=== PATIENT | male | born 1970 | race Caucasian/White ===

== ENCOUNTER 2023-01-20 08:37 | Inpatient (IN) ==
--- NOTE | 2023-01-20 08:57 | DR.EXTPAIN ---
HPI Time seen Time Seen by Provider: 01/20/23 08:57 ROS Review of Systems Constitutional: No Symptoms Reported Eyes: No Symptoms Reported ENTM: No Symptoms Reported Respiratoy: No Symptoms Reported Cardiovascular: No Symptoms Reported Gastrointestinal/Abdominal: No Symptoms Reported Genitourinary: No Symptoms Reported Neurological: No Symptoms Reported Musculoskeletal: No Symptoms Reported Integumentary: No Symptoms Reported Hematologic/Lymphatic: No Symptoms Reported Endocrine: No Symptoms Reported Psychiatric: No Symptoms Reported All Other Systems: Reviewed and Negative PE Vital Signs Vitals: Temperature 99.1 F Pulse Rate 81 Respiratory Rate 18 Blood Pressure 111/70 O2 Sat by Pulse Oximetry 97 Back Back Exam: Normal Inspection Neurological Neurological Exam: Alert Psychiatric Psychiatric Exam: Normal Affect Skin Skin Exam: Warm MDM Differential Diagnosis Differential Diagnosis: Abrasion ROR Labs Reviewed Result Diagrams: 01/20/23 09:32 01/20/23 09:32 Laboratory: WBC 10.2 X10^3/uL (3.6-10.0) H 01/20/23 09:32 RBC 4.62 X10^6/uL (4.7-6.0) L 01/20/23 09:32 Hgb 12.6 g/dL (13.5-18.0) L 01/20/23 09:32 Hct 37.1 % (42.0-54.0) L 01/20/23 09:32 MCV 80.3 fL (80.0-100.0) 01/20/23 09:32 MCH 27.4 pg (27.0-34.0) 01/20/23 09:32 MCHC 34.1 g/dL (33.0-35.0) 01/20/23 09:32 RDW 14.5 % (11.6-16.5) 01/20/23 09:32 Plt Count 250 X10^3/uL (150.0-450.0) 01/20/23 09:32 MPV 7.2 fL (7.4-11.0) L 01/20/23 09:32 Neut % (Auto) 84.9 % (42.0-75.0) H 01/20/23 09:32 Lymph % (Auto) 7.0 % (21.0-51.0) L 01/20/23 09:32 [place] % (Auto) 5.7 % (0.0-13.0) 01/20/23 09:32 Eos % (Auto) 1.8 % (0.9-2.9) 01/20/23 09:32 Baso % (Auto) 0.6 % (0.2-1.0) 01/20/23 09:32 Neut # (Auto) 8.7 x10^3/uL (2.2-4.8) H 01/20/23 09:32 Lymph # (Auto) 0.7 X10^3/uL (1.3-2.9) L 01/20/23 09:32 [place] # (Auto) 0.6 x10^3/uL (0.3-0.8) 01/20/23 09:32 Eos # (Auto) 0.2 x10^3/uL (0.0-0.2) 01/20/23 09:32 Baso # (Auto) 0.1 X10^3/uL (0.0-0.1) 01/20/23 09:32 Absolute Nucleated RBC 0.1 /100WBC 01/20/23 09:32 Sodium 137 mmol/L (136-145) 01/20/23 09:32 Corrected Sodium 140 mmol/L (136-145) 01/20/23 09:32 Potassium 4.2 mmol/L (3.5-5.1) 01/20/23 09:32 Chloride 102 mmol/L (98-107) 01/20/23 09:32 Carbon Dioxide 27.4 mmol/L (21-32) 01/20/23 09:32 BUN 30 mg/dL (7-18) H 01/20/23 09:32 Creatinine 1.45 mg/dL (0.70-1.30) H 01/20/23 09:32 Est GFR (MDRD) Af Amer > 60 (>60) 01/20/23 09:32 Est GFR (MDRD) Non-Af 55 (>60) L 01/20/23 09:32 Glucose 229 mg/dL (65-99) H 01/20/23 09:32 Calcium 8.4 mg/dL (8.5-10.1) L 01/20/23 09:32 Corrected Calcium 10.2 mg/dL (8.5-10.1) H 01/20/23 09:32 Total Bilirubin 0.80 mg/dL (0.2-1.0) 01/20/23 09:32 AST 19 Units/L (15-37) 01/20/23 09:32 ALT 19 Units/L (12-78) 01/20/23 09:32 Alkaline Phosphatase 316 Units/L (46-116) H 01/20/23 09:32 Total Protein 5.9 g/dL (6.4-8.2) L 01/20/23 09:32 Albumin 1.8 g/dL (3.4-5.0) L 01/20/23 09:32 Globulin 4.1 g/dL (2.5-4.5) 01/20/23 09:32 Albumin/Globulin Ratio 0.4 Ratio (1.1-2.1) L 01/20/23 09:32 Opioid Opioid Risk Tool Total: 0 Total Score Risk Category: Low Risk Copyright: Triston CHIN predicting aberrant behaviors Discharge Plan Diagnosis Discharge Problem: Abscess of muscle of upper arm, Hematoma of muscle Discharge Plan Patient Disposition: 01 HOME, SELF-CARE Condition: Stable Orders to Discharge Patient Discharge Orders: Transfer (Routine); Ordered 01/20/23 Ordered By: NICKY PERKINS
[2023-01-20] MEDS ORDERED: TORADOL 30 MG VIAL IVP ONE (09:38)
[2023-01-20] MEDS ORDERED: TORADOL 30 MG VIAL ONE (09:38)
[2023-01-20 09:42] LABS: BASOPHILS # (AUTO) 0.1 X10^3/uL (0.0-0.1); BASOPHILS % (AUTO) 0.6 % (0.2-1.0); EOSINOPHILS # (AUTO) 0.2 x10^3/uL (0.0-0.2); EOSINOPHILS % (AUTO) 1.8 % (0.9-2.9); HEMATOCRIT 37.1 % (42.0-54.0); HEMOGLOBIN 12.6 g/dL (13.5-18.0); LYMPHOCYTES # (AUTO) 0.7 X10^3/uL (1.3-2.9); MEAN CORPUSCULAR HEMOGLOBIN 27.4 pg (27.0-34.0); MEAN CORPUSCULAR HGB CONC 34.1 g/dL (33.0-35.0); MEAN CORPUSCULAR VOLUME 80.3 fL (80.0-100.0); MEAN PLATELET VOLUME 7.2 fL (7.4-11.0); MONOCYTES # (AUTO) 0.6 x10^3/uL (0.3-0.8); MONOCYTES % (AUTO) 5.7 % (0.0-13.0); NEUTROPHILS # (AUTO) 8.7 x10^3/uL (2.2-4.8); NEUTROPHILS % (AUTO) 84.9 % (42.0-75.0); RED BLOOD COUNT 4.62 X10^6/uL (4.7-6.0); RED CELL DISTRIBUTION WIDTH 14.5 % (11.6-16.5); WHITE BLOOD COUNT 10.2 X10^3/uL (3.6-10.0)
[2023-01-20 09:55] LABS: ALANINE AMINOTRANSFERASE 19 Units/L (12-78); ALBUMIN 1.8 g/dL (3.4-5.0); ALKALINE PHOSPHATASE 316 Units/L (46-116); ASPARTATE AMINO TRANSFERASE 19 Units/L (15-37); BLOOD UREA NITROGEN 30 mg/dL (7-18); CALCIUM 8.4 mg/dL (8.5-10.1); CARBON DIOXIDE 27.4 mmol/L (21-32); CHLORIDE 102 mmol/L (98-107); COR CA(FOR HYPOALB) 10.2 mg/dL (8.5-10.1); COR NA(FOR HYPERGLY) 140 mmol/L (136-145); CREATININE 1.45 mg/dL (0.70-1.30); SODIUM 137 mmol/L (136-145); TOTAL PROTEIN 5.9 g/dL (6.4-8.2); eGFR NON BLACK RACES 55 (>60)
--- NOTE | 2023-01-20 11:21 | CT ---
Exam:UPPER EXT WITH CONIndication: Patient C/O of painful/swelling knot or abcess to left tricep area x 5-6 weeks. Denies trauma.Comparison: [None available]Technique: Axial images of the [left arm] were obtained with coronal and sagittal reformatted images performed. Intravenous contrast administration [ was ] performed.Dose reduction techniques including Automated Exposure Control (AEC) and adjustment of mA and kV were utilized.Findings: [There is low attenuation within the proximal left triceps muscle with surrounding inflammatory change raising concern for underlying infection and/or fluid collection. There is no definite peripheral enhancement within the area of decreased attenuation/fluid within the posterior left arm.No fracture of the left shoulder.Mild left AC and glenohumeral joint DJD.There is no definite lymphadenopathy within the left axilla.IMPRESSIONLimited evaluation of the left arm demonstrates heterogeneous decreased attenuation within the left triceps muscle with surrounding inflammatory change within the subcutaneous tissues of the proximal/mid left arm. Findings are suspicious for hematoma, abscess and/or myositis of the triceps muscle. Contrast enhanced left arm MRI examination is recommended for improved characterization this location if no contraindication to MRI. If contraindication further evaluation with targeted sonogram can be performedNo left axillary lymphadenopathy.Mild DJD of the left AC and glenohumeral joints.Electronically signed by: MALGORZATA LEMON (Jan 20, 2023 11:19:43)
[2023-01-20] MEDS ORDERED: ZOSYN VIAL 3.375 GRAMS 3.375 G in NS 100 ML IV 100 ML IV ONE (12:48)
[2023-01-20] MEDS ORDERED: ZOSYN VIAL 3.375 GRAMS IV ONE (12:49)
[2023-01-20] MEDS ORDERED: NS 1,000 ML IV 1,000 ML ONE (12:49)
[2023-01-20] MEDS ORDERED: NS 100 ML IV 100 ML ONE (12:50)
[2023-01-20] MEDS: NS 1,000 ML IV 1,000 ML IV SCH ×2 (12:59→20:28)
[2023-01-20] MEDS ORDERED: MOTRIN TAB 600 MG PO PRN (14:39)
[2023-01-20] MEDS: ZOSYN VIAL 3.375 GRAMS 3.375 G in NS 100 ML IV 100 ML IV SCH ×2 (15:42→21:03)
[2023-01-20] MEDS: NovoLIN R (or HumuLIN R) SUBCUT PRN ×2 (16:34→20:34)
[2023-01-20] MEDS: MORPHINE SULFATE INJ 2 MG INJ IVP PRN (17:13)
--- NOTE | 2023-01-20 20:12 | DR.H&P ---
H&P History & Physical for Day of: H&P Date: 01/20/23 Chief Complaint Chief Complaint: Mass effect to left posterior arm over triceps. Allergies Allergies Allergy/AdvReac Type Severity Reaction Status Date / Time sulfamethoxazole Allergy Verified 01/20/23 09:06 [From Bactrim] trimethoprim [From Bactrim] Allergy Verified 01/20/23 09:06 watermelon Allergy Verified 01/20/23 14:49 History of Present Illness History of Present Illness: As above . 52 yo male with mass to posterior left upper arm x 6 weeks. Seen in ER in [place] at that time and had negative venous doppler for CVT . No definitive treatment or f/u performed at that time . History of NC in 2019 and had coronary stent and has been on Brillinta and aspirin since then. Hx of congestive heart failure and has a pacemaker defibrillator in place. Past Medical History Past Medical History: CHF (has pacemaker and defibrillator in place), Coronary Artery Disease, Diabetes and Dyslipidemia Past Surgical History Surgical History: Angioplasty/Stents, Ortho Surgery and Other (Pacemaker/ defibr illator) Family History Family Medical History: Diabetes Mellitus and Cancer Social History Does patient currently use any type of tobacco product: No Have you used tobacco products in the last 12 months: No Type of Tobacco Use: None Does any household member use tobacco: No Alcohol Use: None Drug Use: None Medications Home Medications: sulfamethoxazole [From Bactrim] Allergy (Verified 01/20/23 09:06) trimethoprim [From Bactrim] Allergy (Verified 01/20/23 09:06) watermelon Allergy (Verified 01/20/23 14:49) CONTINUE taking the following medications aspirin 81 mg tablet 81 mg PO QDAY 01/20/23 [History] atorvastatin 40 mg tablet 40 mg PO QDAY 01/20/23 [History] carvedilol 3.125 mg tablet 1 tab PO BID 01/20/23 [History] empagliflozin 10 mg tablet (Jardiance) 1 tab PO QDAY 01/20/23 [History] furosemide 40 mg tablet 1 tab PO QDAY 01/20/23 [History] sacubitril 24 mg-valsartan 26 mg tablet (Entresto) 1 tab PO BID 01/20/23 [History] spironolactone 25 mg tablet 1 tab PO QDAY 01/20/23 [History] ticagrelor 60 mg tablet (Brilinta) 1 tab PO BID 01/20/23 [History] Labs Result Diagrams: 01/20/23 09:32 01/20/23 09:32 Labs: Laboratory WBC 10.2 X10^3/uL (3.6-10.0) H 01/20/23 09:32 RBC 4.62 X10^6/uL (4.7-6.0) L 01/20/23 09:32 Hgb 12.6 g/dL (13.5-18.0) L 01/20/23 09:32 Hct 37.1 % (42.0-54.0) L 01/20/23 09:32 MCV 80.3 fL (80.0-100.0) 01/20/23 09:32 MCH 27.4 pg (27.0-34.0) 01/20/23 09:32 MCHC 34.1 g/dL (33.0-35.0) 01/20/23 09:32 RDW 14.5 % (11.6-16.5) 01/20/23 09:32 Plt Count 250 X10^3/uL (150.0-450.0) 01/20/23 09:32 MPV 7.2 fL (7.4-11.0) L 01/20/23 09:32 Neut % (Auto) 84.9 % (42.0-75.0) H 01/20/23 09:32 Lymph % (Auto) 7.0 % (21.0-51.0) L 01/20/23 09:32 [place] % (Auto) 5.7 % (0.0-13.0) 01/20/23 09:32 Eos % (Auto) 1.8 % (0.9-2.9) 01/20/23 09:32 Baso % (Auto) 0.6 % (0.2-1.0) 01/20/23 09:32 Neut # (Auto) 8.7 x10^3/uL (2.2-4.8) H 01/20/23 09:32 Lymph # (Auto) 0.7 X10^3/uL (1.3-2.9) L 01/20/23 09:32 [place] # (Auto) 0.6 x10^3/uL (0.3-0.8) 01/20/23 09:32 Eos # (Auto) 0.2 x10^3/uL (0.0-0.2) 01/20/23 09:32 Baso # (Auto) 0.1 X10^3/uL (0.0-0.1) 01/20/23 09:32 Absolute Nucleated RBC 0.1 /100WBC 01/20/23 09:32 Sodium 137 mmol/L (136-145) 01/20/23 09:32 Corrected Sodium 140 mmol/L (136-145) 01/20/23 09:32 Potassium 4.2 mmol/L (3.5-5.1) 01/20/23 09:32 Chloride 102 mmol/L (98-107) 01/20/23 09:32 Carbon Dioxide 27.4 mmol/L (21-32) 01/20/23 09:32 BUN 30 mg/dL (7-18) H 01/20/23 09:32 Creatinine 1.45 mg/dL (0.70-1.30) H 01/20/23 09:32 Est GFR (MDRD) Af Amer > 60 (>60) 01/20/23 09:32 Est GFR (MDRD) Non-Af 55 (>60) L 01/20/23 09:32 Glucose 229 mg/dL (65-99) H 01/20/23 09:32 POC Glucose (mg/dL) 278 mg/dL (65-99) H 01/20/23 16:14 Calcium 8.4 mg/dL (8.5-10.1) L 01/20/23 09:32 Corrected Calcium 10.2 mg/dL (8.5-10.1) H 01/20/23 09:32 Total Bilirubin 0.80 mg/dL (0.2-1.0) 01/20/23 09:32 AST 19 Units/L (15-37) 01/20/23 09:32 ALT 19 Units/L (12-78) 01/20/23 09:32 Alkaline Phosphatase 316 Units/L (46-116) H 01/20/23 09:32 Total Protein 5.9 g/dL (6.4-8.2) L 01/20/23 09:32 Albumin 1.8 g/dL (3.4-5.0) L 01/20/23 09:32 Globulin 4.1 g/dL (2.5-4.5) 01/20/23 09:32 Albumin/Globulin Ratio 0.4 Ratio (1.1-2.1) L 01/20/23 09:32 Review of Systems Constitutional: See HPI Eyes: No Symptoms Reported ENT: No Symptoms Reported Respiratory: No Symptoms Reported Cardiovascular: No Symptoms Reported Gastrointestinal: No Symptoms Reported Genitourinary: No Symptoms Reported Musculoskeletal: No Symptoms Reported Skin: No Symptoms Reported Neurological: No Symptoms Reported Physical Exam Vital Signs: Temperature 98.4 F Pulse Rate [Left] 86 Pulse Rate 81 Respiratory Rate 18 Blood Pressure [Left Arm] 116/68 Blood Pressure 111/70 O2 Sat by Pulse Oximetry 99 Oriented: Normal, Time, Person and Place Eyes: Normal Ear: Normal Nose: Normal Throat: Normal Respiratory: Clear Throughout Cardiovascular: Other (RRR,) : Normal Auscultation: Bowel Sounds: Normal Palpation: Normal Tenderness: Normal Skin: Other (10x8 x 4 cm firm mass to the left posterior arm , no obviou redness) Musculoskeletal: Normal Mood Description: Calm Affect: Normal Speech Pattern: Clear Assessment/Plan (1) Hematoma of muscle: Status: Acute Plan: Will plan drainage of this hematoma to the left posterior upper arm (2) Abscess of muscle of upper arm: Status: Acute Plan: as above (3) Coronary artery disease: Status: Acute Plan: current treatment (4) Congestive heart failure: Status: Acute Plan: continue current treatment (5) Diabetes: Status: Acute Plan: Current home treatment Review H&P Reviewed: Yes Patient was examined?: Yes
[2023-01-20] MEDS: ENTRESTO 24/26 MG TABLET PO SCH (20:27)
[2023-01-20] MEDS: SNACK - Diabetic Appropriate PO SCH (20:27)
[2023-01-20] MEDS: COREG TAB 3.125 MG PO SCH (20:27)
[2023-01-20] MEDS: BRILINTA PO SCH (20:28)
[2023-01-21] MEDS: ZOFRAN TAB 4 MG PO PRN ×2 (02:56→15:56)
[2023-01-21] MEDS: MORPHINE SULFATE INJ 2 MG INJ IVP PRN ×2 (03:00→08:28)
[2023-01-21 05:06] LABS: BASOPHILS % (AUTO) 0.5 % (0.2-1.0); EOSINOPHILS # (AUTO) 0.1 x10^3/uL (0.0-0.2); EOSINOPHILS % (AUTO) 1.5 % (0.9-2.9); HEMOGLOBIN 11.7 g/dL (13.5-18.0); LYMPHOCYTES # (AUTO) 0.6 X10^3/uL (1.3-2.9); LYMPHOCYTES % (AUTO) 5.9 % (21.0-51.0); MEAN CORPUSCULAR HEMOGLOBIN 27.6 pg (27.0-34.0); MEAN CORPUSCULAR HGB CONC 34.5 g/dL (33.0-35.0); MEAN PLATELET VOLUME 7.3 fL (7.4-11.0); MONOCYTES # (AUTO) 0.6 x10^3/uL (0.3-0.8); MONOCYTES % (AUTO) 6.7 % (0.0-13.0); NEUTROPHILS # (AUTO) 8.1 x10^3/uL (2.2-4.8); NEUTROPHILS % (AUTO) 85.4 % (42.0-75.0); RED BLOOD COUNT 4.25 X10^6/uL (4.7-6.0); RED CELL DISTRIBUTION WIDTH 14.3 % (11.6-16.5); WHITE BLOOD COUNT 9.5 X10^3/uL (3.6-10.0)
[2023-01-21] MEDS: NS 1,000 ML IV 1,000 ML IV SCH ×3 (05:17→20:39)
[2023-01-21 05:19] LABS: ALBUMIN 1.6 g/dL (3.4-5.0); CALCIUM 8.1 mg/dL (8.5-10.1); CARBON DIOXIDE 23.9 mmol/L (21-32); CREATININE 1.73 mg/dL (0.70-1.30); TOTAL PROTEIN 5.5 g/dL (6.4-8.2)
[2023-01-21] MEDS: ZOSYN VIAL 3.375 GRAMS 3.375 G in NS 100 ML IV 100 ML IV SCH ×3 (05:36→21:02)
[2023-01-21] MEDS: LIPITOR TAB 40 MG PO SCH (08:25)
[2023-01-21] MEDS: ENTRESTO 24/26 MG TABLET PO SCH ×2 (08:25→20:38)
[2023-01-21] MEDS: COREG TAB 3.125 MG PO SCH ×2 (08:26→20:38)
[2023-01-21] MEDS: BRILINTA PO SCH (08:26)
[2023-01-21] MEDS ORDERED: ASPIRIN 81 MG CHEWTAB PO SCH (09:00)
[2023-01-21] MEDS ORDERED: ALDACTONE TAB 25 MG PO SCH (09:00)
[2023-01-21] MEDS ORDERED: LASIX PO SCH (09:00)
--- NOTE | 2023-01-21 10:42 | DR.H&P ---
H&P History & Physical for Day of: H&P Date: 01/21/23 Chief Complaint Chief Complaint: left arm pain Allergies Allergies Allergy/AdvReac Type Severity Reaction Status Date / Time sulfamethoxazole Allergy Verified 01/20/23 09:06 [From Bactrim] trimethoprim [From Bactrim] Allergy Verified 01/20/23 09:06 watermelon Allergy Verified 01/20/23 14:49 History of Present Illness History of Present Illness: Pt is a 52 year old male past medical history of CAD , HTN, DMT2, presenting with worsening left arm pain and swelling. He reports pain initially started 6 weeks ago and gradually got worse. Only the past few days has he noticed a swelling and some redness in the left triceps area with significant pain. Denies any trauma that he can remember, fever, chills. Labs/imaging: Wbc 9.5, Hgb 11.7, Plt 233, Na 136, K 4.0, Creatinine 1.73, Glucose 207, CT upper extremity: Limited evaluation of the left arm demonstrates heterogeneous decreased attenuation within the left triceps muscle with surrounding inflammatory change within the subcutaneous tissues of the proximal/mid left arm. Findings are suspicious for hematoma, abscess and/or myositis of the triceps muscle. Surgery consulted, likely hematoma and will take to OR tomorrow morning for I&D. Pt started on IV Zosyn, IV morphine prn for pain. Home medications were resumed. Will continue to monitor and follow up labs/imaging in the morning. Past Medical History Past Medical History: CHF (has pacemaker and defibrillator in place), Coronary Artery Disease, Diabetes and Dyslipidemia Past Surgical History Surgical History: Angioplasty/Stents, Ortho Surgery and Other (Pacemaker/ defibrillator) Family History Family Medical History: Diabetes Mellitus and Cancer Social History Does patient currently use any type of tobacco product: No Have you used tobacco products in the last 12 months: No Type of Tobacco Use: None Does any household member use tobacco: No Alcohol Use: None Drug Use: None Medications Home Medications: sulfamethoxazole [From Bactrim] Allergy (Verified 01/20/23 09:06) trimethoprim [From Bactrim] Allergy (Verified 01/20/23 09:06) watermelon Allergy (Verified 01/20/23 14:49) CONTINUE taking the following medications aspirin 81 mg tablet 81 mg PO QDAY 01/20/23 [History] atorvastatin 40 mg tablet 40 mg PO QDAY 01/20/23 [History] carvedilol 3.125 mg tablet 1 tab PO BID 01/20/23 [History] empagliflozin 10 mg tablet (Jardiance) 1 tab PO QDAY 01/20/23 [History] furosemide 40 mg tablet 1 tab PO QDAY 01/20/23 [History] sacubitril 24 mg-valsartan 26 mg tablet (Entresto) 1 tab PO BID 01/20/23 [History] spironolactone 25 mg tablet 1 tab PO QDAY 01/20/23 [History] ticagrelor 60 mg tablet (Brilinta) 1 tab PO BID 01/20/23 [History] Labs Result Diagrams: 01/21/23 04:47 01/21/23 04:47 Labs: Laboratory WBC 9.5 X10^3/uL (3.6-10.0) 01/21/23 04:47 RBC 4.25 X10^6/uL (4.7-6.0) L 01/21/23 04:47 Hgb 11.7 g/dL (13.5-18.0) L 01/21/23 04:47 Hct 34.0 % (42.0-54.0) L 01/21/23 04:47 MCV 80.0 fL (80.0-100.0) 01/21/23 04:47 MCH 27.6 pg (27.0-34.0) 01/21/23 04:47 MCHC 34.5 g/dL (33.0-35.0) 01/21/23 04:47 RDW 14.3 % (11.6-16.5) 01/21/23 04:47 Plt Count 233 X10^3/uL (150.0-450.0) 01/21/23 04:47 MPV 7.3 fL (7.4-11.0) L 01/21/23 04:47 Neut % (Auto) 85.4 % (42.0-75.0) H 01/21/23 04:47 Lymph % (Auto) 5.9 % (21.0-51.0) L 01/21/23 04:47 [place] % (Auto) 6.7 % (0.0-13.0) 01/21/23 04:47 Eos % (Auto) 1.5 % (0.9-2.9) 01/21/23 04:47 Baso % (Auto) 0.5 % (0.2-1.0) 01/21/23 04:47 Neut # (Auto) 8.1 x10^3/uL (2.2-4.8) H 01/21/23 04:47 Lymph # (Auto) 0.6 X10^3/uL (1.3-2.9) L 01/21/23 04:47 [place] # (Auto) 0.6 x10^3/uL (0.3-0.8) 01/21/23 04:47 Eos # (Auto) 0.1 x10^3/uL (0.0-0.2) 01/21/23 04:47 Baso # (Auto) 0.0 X10^3/uL (0.0-0.1) 01/21/23 04:47 Absolute Nucleated RBC 0.0 /100WBC 01/21/23 04:47 Sodium 136 mmol/L (136-145) 01/21/23 04:47 Corrected Sodium 139 mmol/L (136-145) 01/21/23 04:47 Potassium 4.0 mmol/L (3.5-5.1) 01/21/23 04:47 Chloride 102 mmol/L (98-107) 01/21/23 04:47 Carbon Dioxide 23.9 mmol/L (21-32) 01/21/23 04:47 BUN 33 mg/dL (7-18) H 01/21/23 04:47 Creatinine 1.73 mg/dL (0.70-1.30) H 01/21/23 04:47 Est GFR (MDRD) Af Amer 54 (>60) L 01/21/23 04:47 Est GFR (MDRD) Non-Af 45 (>60) L 01/21/23 04:47 Glucose 207 mg/dL (65-99) H 01/21/23 04:47 POC Glucose (mg/dL) 185 mg/dL (65-99) H 01/21/23 05:39 Calcium 8.1 mg/dL (8.5-10.1) L 01/21/23 04:47 Corrected Calcium 10.0 mg/dL (8.5-10.1) 01/21/23 04:47 Total Bilirubin 0.80 mg/dL (0.2-1.0) 01/21/23 04:47 AST 17 Units/L (15-37) 01/21/23 04:47 ALT 17 Units/L (12-78) 01/21/23 04:47 Alkaline Phosphatase 293 Units/L (46-116) H 01/21/23 04:47 Total Protein 5.5 g/dL (6.4-8.2) L 01/21/23 04:47 Albumin 1.6 g/dL (3.4-5.0) L 01/21/23 04:47 Globulin 3.9 g/dL (2.5-4.5) 01/21/23 04:47 Albumin/Globulin Ratio 0.4 Ratio (1.1-2.1) L 01/21/23 04:47 Review of Systems Constitutional: See HPI Eyes: No Symptoms Reported ENT: No Symptoms Reported Respiratory: No Symptoms Reported Cardiovascular: No Symptoms Reported Gastrointestinal: No Symptoms Reported Genitourinary: No Symptoms Reported Musculoskeletal: Arm Pain (Left Upper extremity, erythema) Skin: No Symptoms Reported Neurological: No Symptoms Reported Physical Exam Vital Signs: Temperature 98.6 F Pulse Rate [Left] 78 Pulse Rate 81 Respiratory Rate 18 Blood Pressure [Left Arm] 104/65 Blood Pressure 111/70 O2 Sat by Pulse Oximetry 97 Oriented: Normal, Time, Person and Place Eyes: Normal Ear: Normal Nose: Normal Throat: Normal Respiratory: Clear Throughout Cardiovascular: Normal : Normal Auscultation: Bowel Sounds: Normal Palpation: Normal Tenderness: Normal Skin: Normal Musculoskeletal: Arm (left arm tenderness and erythema) Psychiatric: Normal Mood Description: Calm and Appropriate Affect: Normal Speech Pattern: Clear and Appropriate Assessment/Plan (1) Hematoma of muscle: Status: Acute (2) Abscess of muscle of upper arm: Status: Acute (3) Coronary artery disease: Status: Acute (4) Congestive heart failure: Status: Acute (5) Diabetes: Status: Acute Review H&P Reviewed: Yes Patient was examined?: Yes
[2023-01-21] MEDS: NovoLIN R (or HumuLIN R) SUBCUT PRN ×2 (11:07→17:22)
--- NOTE | 2023-01-21 19:42 | NOTE.SOAP ---
Soap Note Note for Day of Date of Exam: 01/21/23 Subjective Data Subjective Data: Patient with probable infected hematoma to the left posterior upper arm x 6 weeks . He does not remenber any traumatic event. Objective Data Temperature: 98.5 F Pulse Rate: 76 Respiratory Rate: 20 Blood Pressure: 97/62 Objective Data: Mass effect left posterior upper arm. Assessment Assessment: Infected hematoma left posterior upper arm Plan Plan: Incise and drain left upper arm hematoma in AM.
[2023-01-21] MEDS: SNACK - Diabetic Appropriate PO SCH (20:38)
[2023-01-22 05:27] LABS: BASOPHILS # (AUTO) 0.1 X10^3/uL (0.0-0.1); BASOPHILS % (AUTO) 0.7 % (0.2-1.0); EOSINOPHILS # (AUTO) 0.2 x10^3/uL (0.0-0.2); EOSINOPHILS % (AUTO) 2.5 % (0.9-2.9); HEMATOCRIT 34.1 % (42.0-54.0); HEMOGLOBIN 11.6 g/dL (13.5-18.0); LYMPHOCYTES # (AUTO) 0.7 X10^3/uL (1.3-2.9); LYMPHOCYTES % (AUTO) 6.9 % (21.0-51.0); MEAN CORPUSCULAR HEMOGLOBIN 27.3 pg (27.0-34.0); MEAN CORPUSCULAR VOLUME 80.3 fL (80.0-100.0); MEAN PLATELET VOLUME 7.5 fL (7.4-11.0); MONOCYTES # (AUTO) 0.7 x10^3/uL (0.3-0.8); MONOCYTES % (AUTO) 6.9 % (0.0-13.0); NEUTROPHILS # (AUTO) 8.1 x10^3/uL (2.2-4.8); RED BLOOD COUNT 4.24 X10^6/uL (4.7-6.0); RED CELL DISTRIBUTION WIDTH 14.9 % (11.6-16.5); WHITE BLOOD COUNT 9.8 X10^3/uL (3.6-10.0)
[2023-01-22] MEDS: ZOSYN VIAL 3.375 GRAMS 3.375 G in NS 100 ML IV 100 ML IV SCH ×3 (05:29→21:04)
[2023-01-22] MEDS: NS 1,000 ML IV 1,000 ML IV SCH ×3 (05:37→22:45)
[2023-01-22 05:38] LABS: ALBUMIN 1.5 g/dL (3.4-5.0); CALCIUM 8.2 mg/dL (8.5-10.1); CARBON DIOXIDE 19.8 mmol/L (21-32); COR CA(FOR HYPOALB) 10.2 mg/dL (8.5-10.1); CREATININE 3.39 mg/dL (0.70-1.30); TOTAL PROTEIN 5.5 g/dL (6.4-8.2)
--- NOTE | 2023-01-22 10:59 | PCM.PROG ---
Progress Note Progress Note for Day of Date of Exam: 01/22/23 Subjective Subjective: Pt is a 52 year old male past medical history of CAD, HTN, DMT2, admitted for hematoma of the left arm. This morning he is resting in bed. No acute events overnight. Labs/imaging: Wbc 9.8, Hgb 11.6, Plt 219, Na 131, K 4.4, Creatinine 3.39, Glucose 151, CT upper extremity: Limited evaluation of the left arm demonstrates heterogeneous decreased attenuation within the left triceps muscle with surrounding inflammatory change within the subcutaneous tissues of the proximal/mid left arm. Findings are suspicious for hematoma, abscess and/or myositis of the triceps muscle. Surgery consulted, likely hematoma, scheduled for OR today for I&D. Pt is currently on IV Zosyn, IV morphine prn for pain. Home medications were resumed. Elevated creatinine, will start on IVF NS@75ml/h. Will continue to monitor and follow up labs/imaging in the morning. Past Medical Family Social History Allergies: Allergies sulfamethoxazole [From Bactrim] Allergy (Verified 01/20/23 09:06) trimethoprim [From Bactrim] Allergy (Verified 01/20/23 09:06) watermelon Allergy (Verified 01/20/23 14:49) Review of Systems ROS: No change since H&P Vital Signs and I&O's Vital Signs: Temperature 97.8 F Pulse Rate [Left] 74 Pulse Rate 76 Respiratory Rate 20 Blood Pressure [Left Arm] 103/62 Blood Pressure 97/62 O2 Sat by Pulse Oximetry 96 Intake and Output: Intake & Output 01/19/23 01/20/23 01/21/23 01/22/23 23:59 23:59 23:59 23:59 Intake Total 342 / 342 1924 146 / 146 Balance 342 / 342 1924 146 / 146 Physical Exam Oriented: Normal, Time, Person and Place Eyes: Normal Ear: Normal Nose: Normal Throat: Normal Cardiovascular: Normal : Normal Auscultation: Bowel Sounds: Normal Tenderness: Normal Skin: Normal Musculoskeletal: Arm (left arm tenderness and erythema) Psychiatric: Normal Mood Description: Calm and Appropriate Affect: Normal Speech Pattern: Clear Laboratory and Diagnostics Result Diagrams: 01/22/23 04:30 01/22/23 04:30 Labs: Laboratory WBC 9.8 X10^3/uL (3.6-10.0) 01/22/23 04:30 RBC 4.24 X10^6/uL (4.7-6.0) L 01/22/23 04:30 Hgb 11.6 g/dL (13.5-18.0) L 01/22/23 04:30 Hct 34.1 % (42.0-54.0) L 01/22/23 04:30 MCV 80.3 fL (80.0-100.0) 01/22/23 04:30 MCH 27.3 pg (27.0-34.0) 01/22/23 04:30 MCHC 34.0 g/dL (33.0-35.0) 01/22/23 04:30 RDW 14.9 % (11.6-16.5) 01/22/23 04:30 Plt Count 219 X10^3/uL (150.0-450.0) 01/22/23 04:30 MPV 7.5 fL (7.4-11.0) 01/22/23 04:30 Neut % (Auto) 83.0 % (42.0-75.0) H 01/22/23 04:30 Lymph % (Auto) 6.9 % (21.0-51.0) L 01/22/23 04:30 [place] % (Auto) 6.9 % (0.0-13.0) 01/22/23 04:30 Eos % (Auto) 2.5 % (0.9-2.9) 01/22/23 04:30 Baso % (Auto) 0.7 % (0.2-1.0) 01/22/23 04:30 Neut # (Auto) 8.1 x10^3/uL (2.2-4.8) H 01/22/23 04:30 Lymph # (Auto) 0.7 X10^3/uL (1.3-2.9) L 01/22/23 04:30 [place] # (Auto) 0.7 x10^3/uL (0.3-0.8) 01/22/23 04:30 Eos # (Auto) 0.2 x10^3/uL (0.0-0.2) 01/22/23 04:30 Baso # (Auto) 0.1 X10^3/uL (0.0-0.1) 01/22/23 04:30 Absolute Nucleated RBC 0.0 /100WBC 01/22/23 04:30 Sodium 131 mmol/L (136-145) L 01/22/23 04:30 Corrected Sodium 132 mmol/L (136-145) L 01/22/23 04:30 Potassium 4.4 mmol/L (3.5-5.1) 01/22/23 04:30 Chloride 99 mmol/L (98-107) 01/22/23 04:30 Carbon Dioxide 19.8 mmol/L (21-32) L 01/22/23 04:30 BUN 42 mg/dL (7-18) H 01/22/23 04:30 Creatinine 3.39 mg/dL (0.70-1.30) H 01/22/23 04:30 Est GFR (MDRD) Af Amer 25 (>60) L 01/22/23 04:30 Est GFR (MDRD) Non-Af 21 (>60) L 01/22/23 04:30 Glucose 151 mg/dL (65-99) H 01/22/23 04:30 POC Glucose (mg/dL) 143 mg/dL (65-99) H 01/22/23 05:24 Calcium 8.2 mg/dL (8.5-10.1) L 01/22/23 04:30 Corrected Calcium 10.2 mg/dL (8.5-10.1) H 01/22/23 04:30 Total Bilirubin 1.00 mg/dL (0.2-1.0) 01/22/23 04:30 AST 23 Units/L (15-37) 01/22/23 04:30 ALT 11 Units/L (12-78) L 01/22/23 04:30 Alkaline Phosphatase 279 Units/L (46-116) H 01/22/23 04:30 Total Protein 5.5 g/dL (6.4-8.2) L 01/22/23 04:30 Albumin 1.5 g/dL (3.4-5.0) L 01/22/23 04:30 Globulin 4.0 g/dL (2.5-4.5) 01/22/23 04:30 Albumin/Globulin Ratio 0.4 Ratio (1.1-2.1) L 01/22/23 04:30 Plan (1) Hematoma of muscle: Status: Acute Plan: Will plan drainage of this hematoma to the left posterior upper arm (2) Abscess of muscle of upper arm: Status: Acute Plan: as above (3) Coronary artery disease: Status: Acute Plan: current treatment (4) Congestive heart failure: Status: Acute Plan: continue current treatment (5) Diabetes: Status: Acute Plan: Current home treatment
[2023-01-22] MEDS ORDERED: MARCAINE 0.25% INJ ONE (13:28)
[2023-01-22] MEDS ORDERED: LR 1,000 ML IV 0 ML IV ONE (13:29)
[2023-01-22] MEDS ORDERED: NS 100 ML IV 100 ML ONE (13:29)
[2023-01-22] MEDS ORDERED: ANCEF VIAL 1 GRAM ONE (13:30)
[2023-01-22] MEDS ORDERED: NS 1,000 ML IV 1,000 ML ONE (13:30)
[2023-01-22] MEDS ORDERED: XYLOCAINE 2 % (PLAIN) ONE (13:43)
[2023-01-22] MEDS ORDERED: DIPRIVAN VIAL 20 ML ONE (13:43)
[2023-01-22] MEDS ORDERED: ZOFRAN INJ 4 MG VIAL ONE (13:43)
[2023-01-22] MEDS ORDERED: FENTANYL VIAL INJ 100 mcg ONE (13:44)
[2023-01-22] MEDS ORDERED: VERSED ONE (13:44)
[2023-01-22] MEDS ORDERED: KETAMINE HCL ONE (14:02)
[2023-01-22] MEDS ORDERED: EPHEDRINE SULFATE INJ ONE (14:15)
--- NOTE | 2023-01-22 14:33 | OR.IMMED ---
IMMEDIATE POST-OP NOTE Immediate Post-Op Note Pre-Op Diagnosis: Probable abscess to left posterior arm Post-Op Diagnosis: Large abscess with large amounts of pus left posterior arm Procedure: Incise and drain abscess left posterior arm Description of Procedure: see operative summary Surgeon/[employer] S[employer] Leveler: Efraín Findings: as above, [id number] x8x6 cm . packed with Kerlix Specimens Removed: cultures of abscess Estimated Blood Loss: minimal Complications: none Progress Notes: return to floor, resume diet, continue IV antibiotics. May be discharged home tomorrow with home health. Final Diagnosis: as above
[2023-01-22] MEDS: COREG TAB 3.125 MG PO SCH ×2 (15:02→22:45)
[2023-01-22] MEDS: ENTRESTO 24/26 MG TABLET PO SCH ×2 (15:02→22:45)
[2023-01-22] MEDS: LOVENOX INJ 30 MG SYR SC SCH (15:03)
[2023-01-22] MEDS: MORPHINE SULFATE INJ 2 MG INJ IVP PRN ×2 (15:28→19:18)
[2023-01-22] MEDS: LIPITOR TAB 40 MG PO SCH (15:28)
[2023-01-22] MEDS: SNACK - Diabetic Appropriate PO SCH (22:44)
[2023-01-23] MEDS: MORPHINE SULFATE INJ 2 MG INJ IVP PRN ×3 (01:40→14:00)
[2023-01-23] MEDS: ZOSYN VIAL 3.375 GRAMS 3.375 G in NS 100 ML IV 100 ML IV SCH ×2 (05:24→13:59)
[2023-01-23] MEDS: NS 1,000 ML IV 1,000 ML IV SCH ×4 (05:30→21:12)
[2023-01-23 05:42] LABS: BASOPHILS # (AUTO) 0.1 X10^3/uL (0.0-0.1); BASOPHILS % (AUTO) 1.2 % (0.2-1.0); EOSINOPHILS # (AUTO) 0.3 x10^3/uL (0.0-0.2); HEMATOCRIT 32.5 % (42.0-54.0); HEMOGLOBIN 11.3 g/dL (13.5-18.0); LYMPHOCYTES # (AUTO) 0.6 X10^3/uL (1.3-2.9); LYMPHOCYTES % (AUTO) 9.8 % (21.0-51.0); MEAN CORPUSCULAR HEMOGLOBIN 27.6 pg (27.0-34.0); MEAN CORPUSCULAR HGB CONC 34.6 g/dL (33.0-35.0); MEAN CORPUSCULAR VOLUME 79.7 fL (80.0-100.0); MEAN PLATELET VOLUME 7.4 fL (7.4-11.0); MONOCYTES # (AUTO) 0.5 x10^3/uL (0.3-0.8); MONOCYTES % (AUTO) 7.1 % (0.0-13.0); NEUTROPHILS # (AUTO) 5.1 x10^3/uL (2.2-4.8); NEUTROPHILS % (AUTO) 77.9 % (42.0-75.0); RED BLOOD COUNT 4.08 X10^6/uL (4.7-6.0); RED CELL DISTRIBUTION WIDTH 14.5 % (11.6-16.5); WHITE BLOOD COUNT 6.5 X10^3/uL (3.6-10.0)
[2023-01-23 05:56] LABS: ALBUMIN 1.4 g/dL (3.4-5.0); CARBON DIOXIDE 22.7 mmol/L (21-32); COR CA(FOR HYPOALB) 10.1 mg/dL (8.5-10.1); CREATININE 5.04 mg/dL (0.70-1.30); TOTAL PROTEIN 5.3 g/dL (6.4-8.2)
[2023-01-23] MEDS: NovoLIN R (or HumuLIN R) SUBCUT PRN ×2 (05:56→12:36)
[2023-01-23] MEDS: LOVENOX INJ 30 MG SYR SC SCH (08:00)
[2023-01-23] MEDS: LIPITOR TAB 40 MG PO SCH (08:00)
--- NOTE | 2023-01-23 08:51 | PCM.PROG ---
Progress Note Progress Note for Day of Date of Exam: 01/23/23 Subjective Subjective: Pt is a 52 year old male past medical history of CAD, HTN, DMT2, admitted for abscess of the left arm. This morning he is resting in bed, s/p I&D of left arm yesterday that revealed large abscess with large amounts of pus left posterior arm. No acute events overnight. Labs/imaging: Wbc 6.5, Hgb 11.3, Plt 211, Na 135, K 4.2, Creatinine 3.39>5.04, Glucose 154, Surgery following, recommend IV antibiotics and when appropriate discharge home with home health. Wound culture pending. Pt is currently on IV Zosyn, IV morphine prn for pain. Home medications were resumed. Pt does have acute kidney injury, will hold nephrotoxic drugs and increase IVF NS to 150ml/h. Repeat BMP this afternoon. Oth erwise, continue with current treatment plan. Will continue to closely monitor and follow up labs. Past Medical Family Social History Allergies: Allergies sulfamethoxazole [From Bactrim] Allergy (Verified 01/20/23 09:06) trimethoprim [From Bactrim] Allergy (Verified 01/20/23 09:06) watermelon Allergy (Verified 01/20/23 14:49) Review of Systems ROS: No change since H&P Vital Signs and I&O's Vital Signs: Temperature 97.6 F Pulse Rate [Left] 76 Pulse Rate 82 Respiratory Rate 16 Blood Pressure [Left Arm] 94/60 Blood Pressure 117/75 O2 Sat by Pulse Oximetry 95 Intake and Output: Intake & Output 01/20/23 01/21/23 01/22/23 01/23/23 23:59 23:59 23:59 23:59 Intake Total 342 / 342 1924 / 1925 2164 / 2164 245 / 245 Output Total 495 / 495 Balance 342 / 342 1924 / 1925 1669 / 1669 245 / 245 Physical Exam Oriented: Normal, Time, Person and Place Eyes: Normal Ear: Normal Nose: Normal Throat: Normal Respiratory: Normal Cardiovascular: Normal : Normal Auscultation: Bowel Sounds: Normal Tenderness: Normal Skin: Normal Musculoskeletal: Arm (left arm tenderness ) Psychiatric: Normal Mood Description: Calm and Appropriate Affect: Normal Speech Pattern: Clear Laboratory and Diagnostics Result Diagrams: 01/23/23 05:28 01/23/23 05:28 Labs: 01/22/23 14:27 Arm - Left Wound Gram Stain - Final 01/22/23 14:27 Arm - Left Wound Culture - Preliminary Laboratory WBC 6.5 X10^3/uL (3.6-10.0) 01/23/23 05:28 RBC 4.08 X10^6/uL (4.7-6.0) L 01/23/23 05:28 Hgb 11.3 g/dL (13.5-18.0) L 01/23/23 05:28 Hct 32.5 % (42.0-54.0) L 01/23/23 05:28 MCV 79.7 fL (80.0-100.0) L 01/23/23 05:28 MCH 27.6 pg (27.0-34.0) 01/23/23 05:28 MCHC 34.6 g/dL (33.0-35.0) 01/23/23 05:28 RDW 14.5 % (11.6-16.5) 01/23/23 05:28 Plt Count 211 X10^3/uL (150.0-450.0) 01/23/23 05:28 MPV 7.4 fL (7.4-11.0) 01/23/23 05:28 Neut % (Auto) 77.9 % (42.0-75.0) H 01/23/23 05:28 Lymph % (Auto) 9.8 % (21.0-51.0) L 01/23/23 05:28 [place] % (Auto) 7.1 % (0.0-13.0) 01/23/23 05:28 Eos % (Auto) 4.0 % (0.9-2.9) H 01/23/23 05:28 Baso % (Auto) 1.2 % (0.2-1.0) H 01/23/23 05:28 Neut # (Auto) 5.1 x10^3/uL (2.2-4.8) H 01/23/23 05:28 Lymph # (Auto) 0.6 X10^3/uL (1.3-2.9) L 01/23/23 05:28 [place] # (Auto) 0.5 x10^3/uL (0.3-0.8) 01/23/23 05:28 Eos # (Auto) 0.3 x10^3/uL (0.0-0.2) H 01/23/23 05:28 Baso # (Auto) 0.1 X10^3/uL (0.0-0.1) 01/23/23 05:28 Absolute Nucleated RBC 0.0 /100WBC 01/23/23 05:28 Sodium 135 mmol/L (136-145) L 01/23/23 05:28 Corrected Sodium 136 mmol/L (136-145) 01/23/23 05:28 Potassium 4.2 mmol/L (3.5-5.1) 01/23/23 05:28 Chloride 100 mmol/L (98-107) 01/23/23 05:28 Carbon Dioxide 22.7 mmol/L (21-32) 01/23/23 05:28 BUN 53 mg/dL (7-18) H 01/23/23 05:28 Creatinine 5.04 mg/dL (0.70-1.30) H 01/23/23 05:28 Est GFR (MDRD) Af Amer 16 (>60) L 01/23/23 05:28 Est GFR (MDRD) Non-Af 13 (>60) L 01/23/23 05:28 Glucose 154 mg/dL (65-99) H 01/23/23 05:28 POC Glucose (mg/dL) 139 mg/dL (65-99) H 01/23/23 05:31 Calcium 8.0 mg/dL (8.5-10.1) L 01/23/23 05:28 Corrected Calcium 10.1 mg/dL (8.5-10.1) 01/23/23 05:28 Total Bilirubin 0.70 mg/dL (0.2-1.0) 01/23/23 05:28 AST 16 Units/L (15-37) 01/23/23 05:28 ALT 11 Units/L (12-78) L 01/23/23 05:28 Alkaline Phosphatase 226 Units/L (46-116) H 01/23/23 05:28 Total Protein 5.3 g/dL (6.4-8.2) L 01/23/23 05:28 Albumin 1.4 g/dL (3.4-5.0) L 01/23/23 05:28 Globulin 3.9 g/dL (2.5-4.5) 01/23/23 05:28 Albumin/Globulin Ratio 0.4 Ratio (1.1-2.1) L 01/23/23 05:28 Plan (1) Abscess of muscle of upper arm: Status: Acute Plan: post I&D IV antibiotics Wound culture pending (2) Hematoma of muscle: Status: Acute (3) Acute kidney injury: Status: Acute (4) Coronary artery disease: Status: Acute Plan: current treatment (5) Congestive heart failure: Status: Acute Plan: continue current treatment (6) Diabetes: Status: Acute Plan: Current home treatment
[2023-01-23] MEDS ORDERED: FARXIGA PO SCH (09:00)
[2023-01-23] MEDS: COREG TAB 3.125 MG PO SCH ×2 (09:17→20:21)
[2023-01-23 17:22] LABS: CALCIUM 8.3 mg/dL (8.5-10.1); CREATININE 5.78 mg/dL (0.70-1.30)
--- NOTE | 2023-01-23 17:28 | NOTE.SOAP ---
Soap Note Note for Day of Date of Exam: 01/23/23 Subjective Data Subjective Data: POD # 1 after incision and drainage of abscess to posterior left arm. Patient says Dr. Sky is keeping him another day. Objective Data Temperature: 97.6 F Pulse Rate: 72 Respiratory Rate: 16 Blood Pressure: 99/64 O2 Sat by Pulse Oximetry: 96 Objective Data: Dressing intact left upper arm. Assessment Assessment: Abscess left upper posterior arm Plan Plan: Home soon. Continue antibiotics . Plan Home health to do daily dressing changes.
[2023-01-23] MEDS: SNACK - Diabetic Appropriate PO SCH (20:21)
[2023-01-23] MEDS ORDERED: DILAUDID INJ IVP ONE (21:07)
[2023-01-23] MEDS ORDERED: DILAUDID INJ ONE (21:08)
[2023-01-24] MEDS: MORPHINE SULFATE INJ 2 MG INJ IVP PRN ×3 (00:36→11:05)
[2023-01-24 05:27] LABS: BASOPHILS # (AUTO) 0.1 X10^3/uL (0.0-0.1); BASOPHILS % (AUTO) 1.3 % (0.2-1.0); EOSINOPHILS # (AUTO) 0.3 x10^3/uL (0.0-0.2); EOSINOPHILS % (AUTO) 5.5 % (0.9-2.9); HEMATOCRIT 33.9 % (42.0-54.0); HEMOGLOBIN 11.6 g/dL (13.5-18.0); LYMPHOCYTES # (AUTO) 0.7 X10^3/uL (1.3-2.9); LYMPHOCYTES % (AUTO) 11.6 % (21.0-51.0); MEAN CORPUSCULAR HEMOGLOBIN 27.6 pg (27.0-34.0); MEAN CORPUSCULAR HGB CONC 34.1 g/dL (33.0-35.0); MEAN PLATELET VOLUME 7.4 fL (7.4-11.0); MONOCYTES # (AUTO) 0.6 x10^3/uL (0.3-0.8); MONOCYTES % (AUTO) 10.5 % (0.0-13.0); NEUTROPHILS # (AUTO) 4.2 x10^3/uL (2.2-4.8); NEUTROPHILS % (AUTO) 71.1 % (42.0-75.0); RED BLOOD COUNT 4.19 X10^6/uL (4.7-6.0); WHITE BLOOD COUNT 5.9 X10^3/uL (3.6-10.0)
[2023-01-24] MEDS: NS 1,000 ML IV 1,000 ML IV SCH ×3 (05:43→20:56)
[2023-01-24 05:47] LABS: ALANINE AMINOTRANSFERASE < 6 Units/L (12-78); ALBUMIN 1.6 g/dL (3.4-5.0); ALKALINE PHOSPHATASE 235 Units/L (46-116); ASPARTATE AMINO TRANSFERASE 19 Units/L (15-37); BLOOD UREA NITROGEN 58 mg/dL (7-18); CALCIUM 8.2 mg/dL (8.5-10.1); CARBON DIOXIDE 20.2 mmol/L (21-32); CHLORIDE 100 mmol/L (98-107); COR CA(FOR HYPOALB) 10.1 mg/dL (8.5-10.1); COR NA(FOR HYPERGLY) 135 mmol/L (136-145); CREATININE 6.22 mg/dL (0.70-1.30); SODIUM 135 mmol/L (136-145); eGFR NON BLACK RACES 10 (>60)
[2023-01-24] MEDS ORDERED: LASIX IVP ONE ×2 (09:48→21:41)
[2023-01-24 10:01] LABS: BILIRUBIN,URINE NEGATIVE (NEGATIVE); BLOOD/HEMOGLOBIN,URINE 3+ (NEGATIVE); GLUCOSE, URINE 3+ (NEGATIVE); KETONES,URINE NEGATIVE (NEGATIVE); LEUKOCYTE ESTERASE ,URINE NEGATIVE (NEGATIVE); NITRITES,URINE NEGATIVE (NEGATIVE); PROTEIN,URINE 2+ (NEGATIVE); UROBILINOGEN,URINE NORMAL (NORMAL)
[2023-01-24 10:03] LABS: CREATININE,URINE 122.74 mg/dL (40-278); SODIUM,URINE 31 mmol/L (40-220)
[2023-01-24 10:15] LABS: APPEARANCE,URINE CLOUDY (CLEAR); BACTERIA,URINE TRACE /HPF (NEGATIVE); COLOR,URINE DARK YELLOW (YELLOW); SQUAMOUS EPITHELIAL CELL,UR RARE /HPF (NEGATIVE)
[2023-01-24 10:16] LABS: GRANULAR CASTS,URINE FEW /LPF (NEGATIVE)
[2023-01-24] MEDS: LOVENOX INJ 30 MG SYR SC SCH (10:40)
[2023-01-24] MEDS: ROCEPHIN VIAL 1 GRAM 1 G in NS 100 ML IV 100 ML IV SCH (10:40)
[2023-01-24] MEDS: COREG TAB 3.125 MG PO SCH ×2 (10:40→20:55)
[2023-01-24] MEDS: LIPITOR TAB 40 MG PO SCH (10:55)
--- NOTE | 2023-01-24 11:06 | CT ---
HISTORYWORSENING RENAL FUNCTIONSTUDYABDOMEN/PELVIS W/O CONCOMPARISONNone availableTECHNIQUEAxial images through the abdomen and pelvis was performed with intravenous contrast. CT scan was performed following ALARA (As low as Reasonably Achievable).Coronal and Sagittal reformatted images were performed.FINDINGSThe lung bases demonstrate a right lower lobe ground-glass radiopacity with a trace effusion could represent edema. The liver is enlarge without dominant lesions measuring in length 21.6 centimeters. The spleen measures in length approximately 15.6 centimeters. There are multiple gallstones, the stomach is no distended however fluid filled. The pancreas demonstrate no dominant lesions, no intra or extrahepatic biliary dilatation. There is no adrenal masses. There is bilateral perinephric strandingThere is a 8 millimeters nonobstructive lower pole and 9 millimeter midpole left renal calculus, no obstructive ureteral stones, no evidence of hydronephrosisNo focal dilatation of the abdominal aorta, no retroperitoneal masses, there is no significant colitis, no abnormal dilated small bowel loops, no appendicitis, small umbilical hernia containing fat with a neck of 1 centimeterPelvis: There is small amount of free fluid in the cul de sac, there is contrast in the urinary bladder, no pelvic adenopathy. The prostate is not enlarged, no evidence of diverticulitis.There are bilateral enlarged inguinal lymph nodes measuring in the right 2.7 by 1.2 centimeters. There is mild diffuse edema of the soft tissuesBone windows no evidence of aggressive bone lesions. No acute fractures. There is degenerative disc disease L5-S1.IMPRESSIONBilateral normal enhancing kidneys without hydronephrosis with non specific perinephric stranding and multiple calculus in the left kidney without obstruction. No contrast is seen in the renal pelvisesContrast in the urinary bladder it could be from prior injection. No obstructive ureteral stones.Multiple gallstonesGround-glass radiopacities in the lower lobes suspicious for edemaElectronically signed by: Leanna Lynn (Jan 24, 2023 11:05:21)
--- NOTE | 2023-01-24 11:55 | DR.OPNOTE ---
OP NOTE Pre-Op Diagnosis: left upper arm posterior abscess/hematoma Post-Op Diagnosis: Large left upper arm posterior abscess Procedure Date Date Of Procedure: 01/22/23 Procedure: PROCEDURE: Incision and drainage large abscess left posterior arm NARRATIVE: The patient was taken to the operative suite and placed in the supine position. The left arm prepped and draped in sterile fashion. He was given intravenous sedation supervised by myself. Time out for the procedure obtained . Longitudinally along the area of induration and fluctuance this was infiltrated with ten cc's of 0. 5% Marcaine and then opened with a longitudinal 6 cm incision and gross purulence obtained Wound was irrigated and packed with Kerlix and wrapped with clean dressing. Patient tolerated this well. Type of Anesthesia: Local Anesthesia Comment: plus MAC Findings: Large left arm posterior arm abscess Specimen/Pathology: cultures of the abscess left arm. Type of Fluids Used:: Lactated Ringers EBL: minimal Cultures: yes Complications:: none Needle/Sponge Count:: correct Disposition/Condition: Pt. tolerated procedure without difficulty. Taken to [facility] in stable condition.
--- NOTE | 2023-01-24 12:45 | US ---
HISTORYReason For StudySTUDYRENAL USCOMPARSt. Francis Hospitale availableTECHNIQUEMultiple kunz scale and color flow Doppler images of the kidneys were obtained. The region of the urinary bladder was evaluated as well.FINDINGSThe right kidney is normal in echotexture and size. The right kidney measures 12.9 x 5.1 x 5.7 centimeter. No focal mass, hydronephrosis, or stones identified. The right renal cortex is 1.5 centimeters with RI of 0.8The left kidney is unremarkable in its echotexture and size. The left kidney measures 13.2 x 5.8 x 6.3 centimeter. No focal mass, hydronephrosis, or stone can be seen within the left kidney. The left renal cortex is 2.2 centimeters with RI of 0.8The region of the urinary bladder is grossly unremarkable, with a prevoid volume of 168.7 ccIncidental noted gallstones.IMPRESSIONMildly enlarged kidneys without evidence of hydronephrosis, renal cortex is preserved.Electronically signed by: Leanna Lynn (Jan 24, 2023 12:44:47)
[2023-01-24 14:16] LABS: CALCIUM 7.9 mg/dL (8.5-10.1); CARBON DIOXIDE 21.2 mmol/L (21-32); CREATININE 6.22 mg/dL (0.70-1.30)
[2023-01-24] MEDS: HEPARIN SODIUM INJ 5000 UNITS SC SCH (20:55)
[2023-01-24] MEDS: SNACK - Diabetic Appropriate PO SCH (20:56)
--- NOTE | 2023-01-24 21:30 | NOTE.SOAP ---
Soap Note Note for Day of Date of Exam: 01/24/23 Subjective Data Subjective Data: Left arm swollen . Continues onantibiotics Objective Data Temperature: 96.7 F Pulse Rate: 72 Respiratory Rate: 16 Blood Pressure: 113/62 O2 Sat by Pulse Oximetry: 98 Objective Data: Dressing intact . Wound re-packed by me last night. Assessment Assessment: left upper arm posterior abscess. Plan Plan: Home Health and discharge home
--- NOTE | 2023-01-24 21:54 | PCM.PROG ---
Progress Note Progress Note for Day of Date of Exam: 01/24/23 Subjective Subjective: Pt is a 52 year old male past medical history of CAD, HTN, DMT2, admitted for abscess of the left arm. He is s/p I&D which revealed large abscess with pus. Wound Cx showed staph aureus. He renal function has been progressively worsening. Some of his home medications were held yesterday. Zosyn was stopped and switched to Rocephin. He has been on IV hydration. Patient has been ambulating to the bathroom and urinating normally. He does not appear to be fluid overloaded. Labs/imaging reviewed - BUN/Cr 58/6.22 Plan: will order STAT CTAP and renal US to assess renal function. Will order UA, urine Na and creatinine to calculate FeNa. Stop all nephrotoxic medications. Will consult tele nephro via Assignment Editor for further recommendations. Will try lasix IV x1 and decrease fluids. Strict I/Os. Monitor UOP closely. Discussed with patient. Monitor AM labs. Past Medical Family Social History Allergies: Allergies sulfamethoxazole [From Bactrim] Allergy (Verified 01/20/23 09:06) trimethoprim [From Bactrim] Allergy (Verified 01/20/23 09:06) watermelon Allergy (Verified 01/20/23 14:49) Review of Systems ROS: No change since H&P Vital Signs and I&O's Vital Signs: Temperature 96.7 F Pulse Rate [Left] 72 Pulse Rate 72 Respiratory Rate 16 Blood Pressure [Right Arm] 113/62 Blood Pressure [Left Arm] 118/65 Blood Pressure 113/62 O2 Sat by Pulse Oximetry 98 Intake and Output: Intake & Output 01/21/23 01/22/23 01/23/23 01/24/23 23:59 23:59 23:59 23:59 Intake Total 1924 2164 / 2164 2308 / 2308 4526 / 4526 Output Total 495 / 495 0 / 0 Balance 1924 1669 / 1669 2308 / 2308 4526 / 4526 Physical Exam Oriented: Normal, Time, Person and Place Eyes: Normal Ear: Normal Nose: Normal Throat: Normal Respiratory: Normal Cardiovascular: Normal : Normal Auscultation: Bowel Sounds: Normal Tenderness: Normal Skin: Normal Musculoskeletal: Arm (left arm tenderness ) Psychiatric: Normal Mood Description: Calm and Appropriate Affect: Normal Speech Pattern: Clear and Appropriate Laboratory and Diagnostics Result Diagrams: 01/24/23 05:07 01/24/23 14:00 Labs: 01/22/23 14:27 Arm - Left Wound Gram Stain - Final 01/22/23 14:27 Arm - Left Wound Culture - Preliminary Staphylococcus Aureus Laboratory WBC 5.9 X10^3/uL (3.6-10.0) 01/24/23 05:07 RBC 4.19 X10^6/uL (4.7-6.0) L 01/24/23 05:07 Hgb 11.6 g/dL (13.5-18.0) L 01/24/23 05:07 Hct 33.9 % (42.0-54.0) L 01/24/23 05:07 MCV 81.0 fL (80.0-100.0) 01/24/23 05:07 MCH 27.6 pg (27.0-34.0) 01/24/23 05:07 MCHC 34.1 g/dL (33.0-35.0) 01/24/23 05:07 RDW 15.0 % (11.6-16.5) 01/24/23 05:07 Plt Count 239 X10^3/uL (150.0-450.0) 01/24/23 05:07 MPV 7.4 fL (7.4-11.0) 01/24/23 05:07 Neut % (Auto) 71.1 % (42.0-75.0) 01/24/23 05:07 Lymph % (Auto) 11.6 % (21.0-51.0) L 01/24/23 05:07 [place] % (Auto) 10.5 % (0.0-13.0) 01/24/23 05:07 Eos % (Auto) 5.5 % (0.9-2.9) H 01/24/23 05:07 Baso % (Auto) 1.3 % (0.2-1.0) H 01/24/23 05:07 Neut # (Auto) 4.2 x10^3/uL (2.2-4.8) 01/24/23 05:07 Lymph # (Auto) 0.7 X10^3/uL (1.3-2.9) L 01/24/23 05:07 [place] # (Auto) 0.6 x10^3/uL (0.3-0.8) 01/24/23 05:07 Eos # (Auto) 0.3 x10^3/uL (0.0-0.2) H 01/24/23 05:07 Baso # (Auto) 0.1 X10^3/uL (0.0-0.1) 01/24/23 05:07 Absolute Nucleated RBC 0.0 /100WBC 01/24/23 05:07 Sodium 133 mmol/L (136-145) L 01/24/23 14:00 Corrected Sodium 134 mmol/L (136-145) L 01/24/23 14:00 Potassium 4.6 mmol/L (3.5-5.1) 01/24/23 14:00 Chloride 99 mmol/L (98-107) 01/24/23 14:00 Carbon Dioxide 21.2 mmol/L (21-32) 01/24/23 14:00 BUN 58 mg/dL (7-18) H 01/24/23 14:00 Creatinine 6.22 mg/dL (0.70-1.30) H 01/24/23 14:00 Est GFR (MDRD) Af Amer 12 (>60) L 01/24/23 14:00 Est GFR (MDRD) Non-Af 10 (>60) L 01/24/23 14:00 Glucose 153 mg/dL (65-99) H 01/24/23 14:00 POC Glucose (mg/dL) 131 mg/dL (65-99) H 01/24/23 20:53 Calcium 7.9 mg/dL (8.5-10.1) L 01/24/23 14:00 Corrected Calcium 10.1 mg/dL (8.5-10.1) 01/24/23 05:07 Total Bilirubin 0.70 mg/dL (0.2-1.0) 01/24/23 05:07 AST 19 Units/L (15-37) 01/24/23 05:07 ALT < 6 Units/L (12-78) L 01/24/23 05:07 Alkaline Phosphatase 235 Units/L (46-116) H 01/24/23 05:07 Creatine Kinase 155 Units/L (39-308) 01/24/23 14:00 Total Protein 6.0 g/dL (6.4-8.2) L 01/24/23 05:07 Albumin 1.6 g/dL (3.4-5.0) L 01/24/23 05:07 Globulin 4.4 g/dL (2.5-4.5) 01/24/23 05:07 Albumin/Globulin Ratio 0.4 Ratio (1.1-2.1) L 01/24/23 05:07 Specimen Type Clean catch urine 01/24/23 09:47 Urine Color Dark yellow (YELLOW) 01/24/23 09:47 Urine Appearance Cloudy (CLEAR) 01/24/23 09:47 Urine pH 5.0 (5.0 - 8.0) 01/24/23 09:47 Ur Specific [place] 1.025 (1.000-1.030) 01/24/23 09:47 Urine Protein 2+ (NEGATIVE) 01/24/23 09:47 Urine Glucose (UA) 3+ (NEGATIVE) 01/24/23 09:47 Urine Ketones Negative (NEGATIVE) 01/24/23 09:47 Urine Blood 3+ (NEGATIVE) 01/24/23 09:47 Urine Nitrite Negative (NEGATIVE) 01/24/23 09:47 Urine Bilirubin Negative (NEGATIVE) 01/24/23 09:47 Urine Urobilinogen Normal (NORMAL) 01/24/23 09:47 Ur Leukocyte Esterase Negative (NEGATIVE) 01/24/23 09:47 Urine RBC 3-5 /HPF (0-3) A 01/24/23 09:47 Urine WBC None seen /HPF (0-5) 01/24/23 09:47 Ur Squamous Epith Cells Rare /HPF (NEGATIVE) 01/24/23 09:47 Amorphous Sediment 4+ /HPF (NEGATIVE) 01/24/23 09:47 Urine Bacteria Trace /HPF (NEGATIVE) 01/24/23 09:47 Granular Casts Few /LPF (NEGATIVE) 01/24/23 09:47 Ur Culture Indicated? No/not indicated 01/24/23 09:47 Ur Random Sodium 31 mmol/L (40-220) L 01/24/23 09:47 Urine Creatinine 122.74 mg/dL (40-278) 01/24/23 09:47 Plan (1) ATN (acute tubular necrosis): Status: Acute (2) Acute kidney injury: Status: Acute (3) Abscess of muscle of upper arm: Status: Acute Plan: post I&D IV antibiotics Wound culture pending (4) Hematoma of muscle: Status: Acute Plan: Will plan drainage of this hematoma to the left posterior upper arm (5) Coronary artery disease: Status: Acute Plan: current treatment (6) Congestive heart failure: Status: Acute Plan: continue current treatment (7) Diabetes: Status: Acute Plan: Current home treatment
[2023-01-25] MEDS ORDERED: LASIX IVP ONE (00:56)
[2023-01-25] MEDS ORDERED: MAALOX or MYLANTA PO PRN (02:53)
[2023-01-25] MEDS: MORPHINE SULFATE INJ 2 MG INJ IVP PRN ×3 (02:57→22:08)
[2023-01-25 05:24] LABS: BASOPHILS # (AUTO) 0.1 X10^3/uL (0.0-0.1); BASOPHILS % (AUTO) 1.2 % (0.2-1.0); EOSINOPHILS # (AUTO) 0.3 x10^3/uL (0.0-0.2); EOSINOPHILS % (AUTO) 6.7 % (0.9-2.9); HEMATOCRIT 32.1 % (42.0-54.0); LYMPHOCYTES # (AUTO) 0.6 X10^3/uL (1.3-2.9); LYMPHOCYTES % (AUTO) 11.8 % (21.0-51.0); MEAN CORPUSCULAR HEMOGLOBIN 27.3 pg (27.0-34.0); MEAN CORPUSCULAR HGB CONC 34.3 g/dL (33.0-35.0); MEAN CORPUSCULAR VOLUME 79.7 fL (80.0-100.0); MEAN PLATELET VOLUME 7.6 fL (7.4-11.0); MONOCYTES # (AUTO) 0.5 x10^3/uL (0.3-0.8); MONOCYTES % (AUTO) 10.1 % (0.0-13.0); NEUTROPHILS # (AUTO) 3.5 x10^3/uL (2.2-4.8); NEUTROPHILS % (AUTO) 70.2 % (42.0-75.0); RED BLOOD COUNT 4.03 X10^6/uL (4.7-6.0); RED CELL DISTRIBUTION WIDTH 14.9 % (11.6-16.5); WHITE BLOOD COUNT 4.9 X10^3/uL (3.6-10.0)
[2023-01-25 05:36] LABS: ALANINE AMINOTRANSFERASE < 6 Units/L (12-78); ALBUMIN 1.6 g/dL (3.4-5.0); ALKALINE PHOSPHATASE 243 Units/L (46-116); ASPARTATE AMINO TRANSFERASE 21 Units/L (15-37); BLOOD UREA NITROGEN 61 mg/dL (7-18); CALCIUM 8.2 mg/dL (8.5-10.1); CARBON DIOXIDE 17.5 mmol/L (21-32); CHLORIDE 98 mmol/L (98-107); COR CA(FOR HYPOALB) 10.1 mg/dL (8.5-10.1); CREATININE 5.95 mg/dL (0.70-1.30); MAGNESIUM 2.2 mg/dL (2.0-2.9); SODIUM 131 mmol/L (136-145); TOTAL PROTEIN 5.8 g/dL (6.4-8.2); eGFR NON BLACK RACES 11 (>60)
--- NOTE | 2023-01-25 06:38 | EKG ---
Test Reason : elevated renal function Blood Pressure : */* mmHG Vent. Rate : 73 BPM Atrial Rate : 73 BPM P-R Int : 350 ms QRS Dur : 118 ms QT Int : 434 ms P-R-T Axes : 70 131 80 degrees QTc Int : 478 ms Sinus rhythm with 1st degree AV block Right axis deviation Nonspecific intraventricular conduction delay Abnormal ECG No previous ECGs available Confirmed by Kervin Tavarez ([id number]) on 01/25/2023 7:28:59 PM Referred By: Confirmed By: Kervin Tavarez
[2023-01-25] MEDS: ROCEPHIN VIAL 1 GRAM 1 G in NS 100 ML IV 100 ML IV SCH (09:20)
[2023-01-25] MEDS: COREG TAB 3.125 MG PO SCH ×2 (09:20→21:37)
[2023-01-25] MEDS: LIPITOR TAB 40 MG PO SCH (09:20)
[2023-01-25] MEDS: HEPARIN SODIUM INJ 5000 UNITS SC SCH ×2 (09:20→21:37)
[2023-01-25] MEDS ORDERED: LASIX IVP SCH (09:30)
[2023-01-25 11:34] LABS: ABG BASE EXCESS -6.8 mmol/L (-2.0-2.0)
[2023-01-25 11:35] LABS: ABG ALLEN TEST POS; ABG HCO3 17.3 mmol/L (22-26)
--- NOTE | 2023-01-25 11:48 | RAD ---
HISTORYELEVATED RENAL FUNCTION Relevant Clinical InformationSTUDYCHEST, 1 VIEWCOMPARISONNone availableFINDINGSTrachea is midline. There is mild cardiomegaly. There is a left-sided pacemaker with single ventricular lead. No evidence of focal pneumonia, pneumothorax or pleural effusions.There is increase of the interstitial markings at the bases that could be chronic; however we do not have priors for comparison, a viral pneumonia is not excluded.IMPRESSIONMild increase of the interstitial markings at the bases right more than left s could be chronic versus viral pneumonia.Electronically signed by: Leanna Lynn (Jan 25, 2023 11:47:43)
[2023-01-25] MEDS: LASIX IVP SCH (11:57)
[2023-01-25] MEDS ORDERED: DILAUDID INJ IVP ONE (18:30)
[2023-01-25] MEDS ORDERED: DILAUDID INJ ONE (18:34)
[2023-01-25] MEDS: NovoLIN R (or HumuLIN R) SUBCUT PRN (21:38)
[2023-01-25] MEDS: SNACK - Diabetic Appropriate PO SCH (21:38)
--- NOTE | 2023-01-25 23:11 | NOTE.SOAP ---
Soap Note Note for Day of Date of Exam: 01/25/23 Subjective Data Subjective Data: POD # 3 after Ind D of left upper arm abscess which is improving but he has developed non-oliguric renal failre. Believed to be multi-factorial. Making urine. Not SOB. Objective Data Temperature: 97.2 F Pulse Rate: 77 Respiratory Rate: 20 Blood Pressure: 116/77 O2 Sat by Pulse Oximetry: 98 Objective Data: Wound continues to get smaller to left posterior upper arm. Repacked by me. R edness of skin almost resolved. Cultures growing methicillin sensitive Staph aureus. Hgb=11.0, Cr-5.95, WBC= 4.9 Assessment Assessment: 1) Abscess to left upper arm improving. Will be able to transition to po antibiotic. 2) Non-oliguric renal failure. Followed by supervisor sewer maintenance and telemedicine senior it specialist consult. Plan Plan: as above.
[2023-01-26] MEDS: MORPHINE SULFATE INJ 2 MG INJ IVP PRN ×4 (02:08→19:46)
[2023-01-26 05:46] LABS: BASOPHILS # (AUTO) 0.1 X10^3/uL (0.0-0.1); BASOPHILS % (AUTO) 1.4 % (0.2-1.0); EOSINOPHILS # (AUTO) 0.3 x10^3/uL (0.0-0.2); EOSINOPHILS % (AUTO) 6.4 % (0.9-2.9); HEMATOCRIT 33.4 % (42.0-54.0); HEMOGLOBIN 11.2 g/dL (13.5-18.0); LYMPHOCYTES # (AUTO) 0.5 X10^3/uL (1.3-2.9); LYMPHOCYTES % (AUTO) 11.6 % (21.0-51.0); MEAN CORPUSCULAR HEMOGLOBIN 27.1 pg (27.0-34.0); MEAN CORPUSCULAR HGB CONC 33.7 g/dL (33.0-35.0); MEAN CORPUSCULAR VOLUME 80.4 fL (80.0-100.0); MEAN PLATELET VOLUME 7.3 fL (7.4-11.0); MONOCYTES # (AUTO) 0.4 x10^3/uL (0.3-0.8); MONOCYTES % (AUTO) 10.3 % (0.0-13.0); NEUTROPHILS % (AUTO) 70.3 % (42.0-75.0); RED BLOOD COUNT 4.15 X10^6/uL (4.7-6.0); RED CELL DISTRIBUTION WIDTH 14.5 % (11.6-16.5); WHITE BLOOD COUNT 4.2 X10^3/uL (3.6-10.0)
[2023-01-26] MEDS: NovoLIN R (or HumuLIN R) SUBCUT PRN (05:52)
[2023-01-26 06:10] LABS: ALBUMIN 1.7 g/dL (3.4-5.0); CALCIUM 8.4 mg/dL (8.5-10.1); CARBON DIOXIDE 23.6 mmol/L (21-32); COR CA(FOR HYPOALB) 10.2 mg/dL (8.5-10.1); CREATININE 4.49 mg/dL (0.70-1.30); TOTAL PROTEIN 6.1 g/dL (6.4-8.2)
[2023-01-26] MEDS: COREG TAB 3.125 MG PO SCH ×2 (10:21→20:40)
[2023-01-26] MEDS: HEPARIN SODIUM INJ 5000 UNITS SC SCH ×2 (10:21→20:41)
[2023-01-26] MEDS: LIPITOR TAB 40 MG PO SCH (10:21)
[2023-01-26] MEDS: ROCEPHIN VIAL 1 GRAM 1 G in NS 100 ML IV 100 ML IV SCH (10:21)
[2023-01-26] MEDS: LASIX IVP SCH (10:27)
[2023-01-26] MEDS ORDERED: DILAUDID INJ IVP ONE (11:40)
[2023-01-26] MEDS ORDERED: DILAUDID INJ ONE (11:41)
[2023-01-26] MEDS: SNACK - Diabetic Appropriate PO SCH (20:01)
[2023-01-27 05:21] LABS: BASOPHILS # (AUTO) 0.1 X10^3/uL (0.0-0.1); BASOPHILS % (AUTO) 0.9 % (0.2-1.0); EOSINOPHILS # (AUTO) 0.2 x10^3/uL (0.0-0.2); EOSINOPHILS % (AUTO) 3.9 % (0.9-2.9); HEMATOCRIT 33.6 % (42.0-54.0); HEMOGLOBIN 11.4 g/dL (13.5-18.0); LYMPHOCYTES # (AUTO) 0.5 X10^3/uL (1.3-2.9); LYMPHOCYTES % (AUTO) 8.1 % (21.0-51.0); MEAN CORPUSCULAR HEMOGLOBIN 27.3 pg (27.0-34.0); MEAN CORPUSCULAR HGB CONC 33.9 g/dL (33.0-35.0); MEAN CORPUSCULAR VOLUME 80.5 fL (80.0-100.0); MEAN PLATELET VOLUME 7.4 fL (7.4-11.0); MONOCYTES # (AUTO) 0.5 x10^3/uL (0.3-0.8); NEUTROPHILS # (AUTO) 4.8 x10^3/uL (2.2-4.8); NEUTROPHILS % (AUTO) 79.1 % (42.0-75.0); RED BLOOD COUNT 4.17 X10^6/uL (4.7-6.0); WHITE BLOOD COUNT 6.1 X10^3/uL (3.6-10.0)
[2023-01-27 05:40] LABS: ALBUMIN 1.8 g/dL (3.4-5.0); CALCIUM 8.7 mg/dL (8.5-10.1); CARBON DIOXIDE 24.5 mmol/L (21-32); COR CA(FOR HYPOALB) 10.5 mg/dL (8.5-10.1); CREATININE 3.24 mg/dL (0.70-1.30); TOTAL PROTEIN 6.2 g/dL (6.4-8.2)
[2023-01-27] MEDS: MORPHINE SULFATE INJ 2 MG INJ IVP PRN ×3 (05:45→20:07)
[2023-01-27] MEDS: NovoLIN R (or HumuLIN R) SUBCUT PRN ×2 (05:46→20:08)
[2023-01-27] MEDS ORDERED: DILAUDID INJ IVP ONE (08:07)
[2023-01-27] MEDS ORDERED: DILAUDID INJ ONE (08:11)
[2023-01-27] MEDS: LASIX IVP SCH (09:34)
[2023-01-27] MEDS: HEPARIN SODIUM INJ 5000 UNITS SC SCH ×2 (09:34→20:07)
[2023-01-27] MEDS: ROCEPHIN VIAL 1 GRAM 1 G in NS 100 ML IV 100 ML IV SCH (09:34)
[2023-01-27] MEDS: COREG TAB 3.125 MG PO SCH ×2 (09:34→20:06)
[2023-01-27] MEDS: LIPITOR TAB 40 MG PO SCH (09:49)
[2023-01-27] MEDS: ALBUMIN HUMAN 25%- 100 ML 100 ML IV SCH (11:16)
[2023-01-27] MEDS: SNACK - Diabetic Appropriate PO SCH (19:19)
--- NOTE | 2023-01-28 01:40 | NOTE.SOAP ---
Soap Note Note for Day of Date of Exam: 01/27/23 Subjective Data Subjective Data: Doing better after incision and drainage left arm abscess. Creatinine improved. Objective Data Temperature: 98.7 F Pulse Rate: 76 Respiratory Rate: 18 Blood Pressure: 120/68 O2 Sat by Pulse Oximetry: 97 Objective Data: Wound packed and continues to get smaller. Cr=3.24 Assessment Assessment: abscess left arm, renal dysfunction Plan Plan: antibiotics and wound packing , kidney function continues to improve.
[2023-01-28 05:03] LABS: BASOPHILS # (AUTO) 0.1 X10^3/uL (0.0-0.1); BASOPHILS % (AUTO) 1.2 % (0.2-1.0); EOSINOPHILS # (AUTO) 0.3 x10^3/uL (0.0-0.2); EOSINOPHILS % (AUTO) 5.2 % (0.9-2.9); HEMATOCRIT 35.5 % (42.0-54.0); LYMPHOCYTES # (AUTO) 0.7 X10^3/uL (1.3-2.9); LYMPHOCYTES % (AUTO) 13.3 % (21.0-51.0); MEAN CORPUSCULAR HEMOGLOBIN 27.4 pg (27.0-34.0); MEAN CORPUSCULAR HGB CONC 33.7 g/dL (33.0-35.0); MEAN CORPUSCULAR VOLUME 81.2 fL (80.0-100.0); MEAN PLATELET VOLUME 7.3 fL (7.4-11.0); MONOCYTES # (AUTO) 0.5 x10^3/uL (0.3-0.8); MONOCYTES % (AUTO) 9.3 % (0.0-13.0); NEUTROPHILS # (AUTO) 3.6 x10^3/uL (2.2-4.8); RED BLOOD COUNT 4.37 X10^6/uL (4.7-6.0); RED CELL DISTRIBUTION WIDTH 14.7 % (11.6-16.5)
[2023-01-28 05:16] LABS: ALBUMIN 2.1 g/dL (3.4-5.0); CALCIUM 8.6 mg/dL (8.5-10.1); CARBON DIOXIDE 24.8 mmol/L (21-32); COR CA(FOR HYPOALB) 10.1 mg/dL (8.5-10.1); CREATININE 2.41 mg/dL (0.70-1.30); TOTAL PROTEIN 6.5 g/dL (6.4-8.2)
[2023-01-28] MEDS: MORPHINE SULFATE INJ 2 MG INJ IVP PRN ×3 (05:24→20:45)
[2023-01-28] MEDS: NovoLIN R (or HumuLIN R) SUBCUT PRN ×3 (05:30→20:48)
[2023-01-28 08:37] VITALS: BMI 26.8
[2023-01-28] MEDS: COREG TAB 3.125 MG PO SCH ×2 (08:49→20:44)
[2023-01-28] MEDS: HEPARIN SODIUM INJ 5000 UNITS SC SCH ×2 (08:49→20:45)
[2023-01-28] MEDS: LASIX IVP SCH (08:49)
[2023-01-28] MEDS: LIPITOR TAB 40 MG PO SCH (08:49)
[2023-01-28] MEDS: ROCEPHIN VIAL 1 GRAM 1 G in NS 100 ML IV 100 ML IV SCH (08:50)
[2023-01-28] MEDS: ALBUMIN HUMAN 25%- 100 ML 100 ML IV SCH (08:51)
[2023-01-28] MEDS ORDERED: NS 500 ML IV 500 ML IV ONE (08:57)
--- NOTE | 2023-01-28 09:42 | RAD ---
HISTORYSOBSTUDYAP chestCOMPARISONApril 2022FINDINGSStable heart size and pacemaker position. There is a persistent diffuse bilateral interstitial process, without evidence for airspace component or pleural effusion.IMPRESSIONPersistent bilateral interstitial densities which may reflect an atypical pneumonic process or vascular congestion. No localized airspace abnormality is demonstrated.Electronically signed by: CYNTHIA GODOY (Jan 28, 2023 09:41:31)
--- NOTE | 2023-01-28 11:14 | PCM.PROG ---
Progress Note - Progress Note for Day of Date of Exam: 01/27/23 - Subjective Subjective: IS A 52 YEAR OLD PATIENT OF AND . HE HAS A PMH OF CAD, CHF WITH EF OF 20%, DM II. HE IS CURRENTLY INPATIENT STATUS FOR TREATMENT OF ACUTE TUBULAR NECROSIS, ACUTE KIDNEY INJURY, CHR, ABSCESS OF MUSCLE OF UPPER ARM, HEMATOMA OF UPPER ARM. WOUND CULTURE IS POSITIVE FOR STAPH AUREUS. HE IS STATUS POST I&D OF WOUND TO THE UPPER ARM. NEPHROTOXIC MEDICATIONS HAVE BEEN HELD AND NEPHROLOGY WAS CONSULTED VIA [facility]. THEY CONTINUE TO FOLLOW PATIENT AND MAKE RECOMMENDATIONS VIA TELEMED. TODAY, HE IS ALERT AND ORIENTED, LYING IN BED ON MORNING ROUNDS. HE COMPLAINS OF LEFT ARM TENDERNESS AND OCCASIONAL SHORTNESS OF BREATH. HE DENIES ANY OTHER COMPLAINTS THIS MORNING. ON EXAMINATION, HEART IS REGULAR IN RATE AND RHYTHM. BILATERAL LUNGS ARE NOTED WITH DIMINISHED LUNG SOUNDS THROUHGOUT. ABDOMEN IS ROUND, SOFT, AND NON-TENDER WITH NORMAL BOWEL SOUNDS NOTED IN ALL QUADRNATS. DRESSING IS NOTED TO LEFT UPPER EXTREMITY. NO SIGNIFICANT LOWER EXTREMITY EDEMA NOTED. HIS VITALS THIS MORNING ARE: 97.8-76-20-99%-113/71. LABS WERE OBTAINED. WBC 6.1, RBC 4.17, HGB 11.4, HCT 33.6, PLT COUNT 243, SODIUM 137, POTASSIUM 4.6, CHLORIDE 103, BUN 49, CREATININE 3.24, GLUCOSE 210, CALCIUM 8.7, AST 25, ALT 7, ALK PHOS 284, BNP 2740, TOTAL PROTEIN 6.2, ALBUMIN 1.8. HE IS CURRENTLY RECEIVING ROCEPHIN 1G IV DAILY, HEPARIN 5,000 UNITS SC BID, LASIX 80MG IV DAILY, OTBS ACHS, HUMULIN R SLIDING SCALE, MORPHINE 2MG IV Q4H PRN, ZOFRAN 4MG PO Q8H PRN, COREG 3.125MG BID, LIPITOR 40MG DAILY, AND MAALOX 30ML Q4H PRN. TODAY, WE WILL ADD ALBUMIN 25% IV DAILY. 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 NEPHROLOGY WILL CONTINUE TO FOLLOW VIA TELEMED. OTHERWISE, WE WILL FOLLOW-UP WITH AM LABS AND CONTINUE TO MONITOR. TIME SPENT ON CLINICAL ASSESSMENT, REV IWING LABS AND IMAGING, DECISION MAKING, AND DOCUMENTATION GREATER THAN 45 MINUTES. - Past Medical Family Social History Past Med/Fam/Surg Hx: No changes since H&P Allergies: Allergies sulfamethoxazole [From Bactrim] Allergy (Verified 01/20/23 09:06) trimethoprim [From Bactrim] Allergy (Verified 01/20/23 09:06) watermelon Allergy (Verified 01/20/23 14:49) - Review of Systems ROS: No change since H&P - Vital Signs and I&O's Vital Signs: Temperature 98.0 F Pulse Rate [Left] 82 Pulse Rate 76 Respiratory Rate 20 Blood Pressure [Right Arm] 120/71 Blood Pressure [Left Arm] 118/65 Blood Pressure 120/68 O2 Sat by Pulse Oximetry 91 Intake and Output: Intake & Output 01/25/23 01/26/23 01/27/23 01/28/23 11:59 11:59 11:59 11:59 Intake Total 4209 / 4209 1201 / 1201 1560 / 1560 1860 / 1860 Output Total 725 / 725 3470 / 3470 4550 / 4550 4000 / 4000 Balance 3484 / 3484 -2269 / -2269 -2990 / -2990 -2140 / -2140 - Physical Exam Oriented: Normal, Time, Person, Place Eyes: Normal Ear: Normal Nose: Normal Throat: Normal Respiratory: Normal Cardiovascular: Normal : Normal Auscultation: Bowel Sounds: Normal Palpation: Normal Tenderness: Normal Skin: Normal Musculoskeletal: Arm (left arm tenderness) Psychiatric: Normal Mood Description: Calm, Appropriate Affect: Normal Speech Pattern: Clear, Appropriate - Laboratory and Diagnostics Result Diagrams: 01/28/23 04:30 01/28/23 04:30 Labs: 01/22/23 14:27 Arm - Left Wound Gram Stain - Final 01/22/23 14:27 Arm - Left Wound Culture - Final Staphylococcus Aureus Laboratory WBC 5.0 X10^3/uL (3.6-10.0) 01/28/23 04:30 RBC 4.37 X10^6/uL (4.7-6.0) L 01/28/23 04:30 Hgb 12.0 g/dL (13.5-18.0) L 01/28/23 04:30 Hct 35.5 % (42.0-54.0) L 01/28/23 04:30 MCV 81.2 fL (80.0-100.0) 01/28/23 04:30 MCH 27.4 pg (27.0-34.0) 01/28/23 04:30 MCHC 33.7 g/dL (33.0-35.0) 01/28/23 04:30 RDW 14.7 % (11.6-16.5) 01/28/23 04:30 Plt Count 234 X10^3/uL (150.0-450.0) 01/28/23 04:30 MPV 7.3 fL (7.4-11.0) L 01/28/23 04:30 Neut % (Auto) 71.0 % (42.0-75.0) 01/28/23 04:30 Lymph % (Auto) 13.3 % (21.0-51.0) L 01/28/23 04:30 [place] % (Auto) 9.3 % (0.0-13.0) 01/28/23 04:30 Eos % (Auto) 5.2 % (0.9-2.9) H 01/28/23 04:30 Baso % (Auto) 1.2 % (0.2-1.0) H 01/28/23 04:30 Neut # (Auto) 3.6 x10^3/uL (2.2-4.8) 01/28/23 04:30 Lymph # (Auto) 0.7 X10^3/uL (1.3-2.9) L 01/28/23 04:30 [place] # (Auto) 0.5 x10^3/uL (0.3-0.8) 01/28/23 04:30 Eos # (Auto) 0.3 x10^3/uL (0.0-0.2) H 01/28/23 04:30 Baso # (Auto) 0.1 X10^3/uL (0.0-0.1) 01/28/23 04:30 Absolute Nucleated RBC 0.1 /100WBC 01/28/23 04:30 Sample Site Rr 01/25/23 11:28 ABG pH 7.370 (7.35-7.45) 01/25/23 11:28 ABG pCO2 30.0 mmHg (35.0-45.0) L 01/25/23 11:28 ABG pO2 82.0 mmHg (80.0-100.0) 01/25/23 11:28 ABG HCO3 17.3 mmol/L (22-26) L* 01/25/23 11:28 ABG O2 Saturation 96.0 % (90-100) 01/25/23 11:28 ABG Base Excess -6.8 mmol/L (-2.0-2.0) L 01/25/23 11:28 [place]ordo Test Pos 01/25/23 11:28 A-a Gradient 30.0 mmHg 01/25/23 11:28 FiO2 21.0 01/25/23 11:28 Blood Gas Comments Pt [email or web address] 01/25/23 11:28 Sodium 139 mmol/L (136-145) 01/28/23 04:30 Corrected Sodium 143 mmol/L (136-145) 01/28/23 04:30 Potassium 4.2 mmol/L (3.5-5.1) 01/28/23 04:30 Chloride 103 mmol/L (98-107) 01/28/23 04:30 Carbon Dioxide 24.8 mmol/L (21-32) 01/28/23 04:30 BUN 43 mg/dL (7-18) H 01/28/23 04:30 Creatinine 2.41 mg/dL (0.70-1.30) H 01/28/23 04:30 Est GFR (MDRD) Af Amer 37 (>60) L 01/28/23 04:30 Est GFR (MDRD) Non-Af 30 (>60) L 01/28/23 04:30 Glucose 246 mg/dL (65-99) H 01/28/23 04:30 POC Glucose (mg/dL) 256 mg/dL (65-99) H 01/28/23 05:05 Calcium 8.6 mg/dL (8.5-10.1) 01/28/23 04:30 Corrected Calcium 10.1 mg/dL (8.5-10.1) 01/28/23 04:30 Phosphorus 8.0 mg/dL (2.6-4.7) H 01/25/23 04:24 Magnesium 2.2 mg/dL (2.0-2.9) 01/25/23 04:24 Total Bilirubin 0.40 mg/dL (0.2-1.0) 01/28/23 04:30 AST 27 Units/L (15-37) 01/28/23 04:30 ALT 11 Units/L (12-78) L 01/28/23 04:30 Alkaline Phosphatase 310 Units/L (46-116) H 01/28/23 04:30 Creatine Kinase 155 Units/L (39-308) 01/24/23 14:00 B-Natriuretic Peptide 3170 pg/mL (0-79) H* 01/28/23 04:30 Total Protein 6.5 g/dL (6.4-8.2) 01/28/23 04:30 Albumin 2.1 g/dL (3.4-5.0) L 01/28/23 04:30 Globulin 4.4 g/dL (2.5-4.5) 01/28/23 04:30 Albumin/Globulin Ratio 0.5 Ratio (1.1-2.1) L 01/28/23 04:30 Specimen Type Clean catch urine 01/24/23 09:47 Urine Color Dark yellow (YELLOW) 01/24/23 09:47 Urine Appearance Cloudy (CLEAR) 01/24/23 09:47 Urine pH 5.0 (5.0 - 8.0) 01/24/23 09:47 Ur Specific [place] 1.025 (1.000-1.030) 01/24/23 09:47 Urine Protein 2+ (NEGATIVE) 01/24/23 09:47 Urine Glucose (UA) 3+ (NEGATIVE) 01/24/23 09:47 Urine Ketones Negative (NEGATIVE) 01/24/23 09:47 Urine Blood 3+ (NEGATIVE) 01/24/23 09:47 Urine Nitrite Negative (NEGATIVE) 01/24/23 09:47 Urine Bilirubin Negative (NEGATIVE) 01/24/23 09:47 Urine Urobilinogen Normal (NORMAL) 01/24/23 09:47 Ur Leukocyte Esterase Negative (NEGATIVE) 01/24/23 09:47 Urine RBC 3-5 /HPF (0-3) A 01/24/23 09:47 Urine WBC None seen /HPF (0-5) 01/24/23 09:47 Ur Squamous Epith Cells Rare /HPF (NEGATIVE) 01/24/23 09:47 Amorphous Sediment 4+ /HPF (NEGATIVE) 01/24/23 09:47 Urine Bacteria Trace /HPF (NEGATIVE) 01/24/23 09:47 Granular Casts Few /LPF (NEGATIVE) 01/24/23 09:47 Ur Culture Indicated? No/not indicated 01/24/23 09:47 Ur Random Sodium 31 mmol/L (40-220) L 01/24/23 09:47 Urine Creatinine 122.74 mg/dL (40-278) 01/24/23 09:47 - Plan (1) ATN (acute tubular necrosis) Status: Acute (2) Acute kidney injury Status: Acute (3) Abscess of muscle of upper arm Status: Acute Plan: post I&D. IV antibiotics. Wound culture pending (4) Hematoma of muscle Status: Acute (5) Congestive heart failure Status: Chronic Qualifiers: Heart failure type: unspecified Heart failure chronicity: chronic Q ualified Code(s): I50.9 - Heart failure, unspecified Plan: continue current treatment (6) Coronary artery disease Status: Chronic Qualifiers: Coronary Disease-Associated Artery/Lesion type: [place] artery [place] vs. 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
--- NOTE | 2023-01-28 12:06 | PCM.PROG ---
Progress Note - Progress Note for Day of Date of Exam: 01/28/23 - Subjective Subjective: IS A 52 YEAR OLD PATIENT OF AND . HE HAS A PMH OF CAD, CHF WITH EF OF 20%, DM II. HE IS CURRENTLY INPATIENT STATUS FOR TREATMENT OF ACUTE TUBULAR NECROSIS, ACUTE KIDNEY INJURY, CHR, ABSCESS OF MUSCLE OF UPPER ARM, HEMATOMA OF UPPER ARM. WOUND CULTURE IS POSITIVE FOR STAPH AUREUS. HE IS STATUS POST I&D OF WOUND TO THE UPPER ARM. NEPHROTOXIC MEDICATIONS HAVE BEEN HELD AND NEPHROLOGY WAS CONSULTED VIA [facility]. THEY CONTINUE TO FOLLOW PATIENT AND MAKE RECOMMENDATIONS VIA TELEMED. TODAY, HE IS ALERT AND ORIENTED, LYING IN BED ON MORNING ROUNDS. HE COMPLAINS OF LEFT ARM TENDERNESS AND OCCASIONAL SHORTNESS OF BREATH. HE DENIES ANY OTHER COMPLAINTS THIS MORNING. ON EXAMINATION, HEART IS REGULAR IN RATE AND RHYTHM. BILATERAL LUNGS ARE NOTED WITH DIMINISHED LUNG SOUNDS THROUHGOUT. ABDOMEN IS ROUND, SOFT, AND NON-TENDER WITH NORMAL BOWEL SOUNDS NOTED IN ALL QUADRNATS. DRESSING IS NOTED TO LEFT UPPER EXTREMITY. NO SIGNIFICANT LOWER EXTREMITY EDEMA NOTED. HIS VITALS THIS MORNING ARE: 98.0-82-20-91%-120/71. LABS WERE OBTAINED. WBC 5.0, RBC 4.37, HGB 12.0, HCT 35.5, PLT COUNT 234, SODIUM 139, POTASSIUM 4.2, BUN 43, CREATININE 2.41, GLCUOSE 246, AST 27, ALT 11, ALK PHOS 310, BNP 3170, TOTAL PROTEIN 6.5, ALBUMIN 2.1. A CHEST XRAY WAS OBTAINED AND REVEALED: Persistent bilateral interstitial densities which may reflect an atypical pneumonic process or vascular congestion. No localized airspace abnormality is demonstrated. HE IS CURRENTLY RECEIVING ALBUMIN 25% IV DAILY, ROCEPHIN 1G IV DAILY, HEPARIN 5,000 UNITS SC BID, LASIX 80MG IV DAILY, OTBS ACHS, HUMULIN R SLIDING SCALE, MORPHINE 2MG IV Q4H PRN, ZOFRAN 4MG PO Q8H PRN, COREG 3.125MG BID, LIPITOR 40MG DAILY, AND MAALOX 30ML Q4H PRN. 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 NEPHROLOGY WILL CONTINUE TO FOLLOW VIA TELEMED. OTHERWISE, WE WILL FOLLOW-UP WITH AM LABS AND CONTINUE TO MONITOR. TIME SPENT ON CLINICAL ASSESSMENT, REVIWING LABS AND IMAGING, DECISION MAKING, AND DOCUMENTATION GREATER THAN 45 MINUTES. - Past Medical Family Social History Past Med/Fam/Surg Hx: No changes since H&P Allergies: Allergies sulfamethoxazole [From Bactrim] Allergy (Verified 01/20/23 09:06) trimethoprim [From Bactrim] Allergy (Verified 01/20/23 09:06) watermelon Allergy (Verified 01/20/23 14:49) - Review of Systems ROS: No change since H&P - Vital Signs and I&O's Vital Signs: Temperature 98.0 F Pulse Rate [Left] 82 Pulse Rate 76 Respiratory Rate 20 Blood Pressure [Right Arm] 120/71 Blood Pressure [Left Arm] 118/65 Blood Pressure 120/68 O2 Sat by Pulse Oximetry 91 Intake and Output: Intake & Output 01/26/23 01/27/23 01/28/23 01/29/23 11:59 11:59 11:59 11:59 Intake Total 1201 / 1201 1560 / 1560 1860 / 1860 Output Total 3470 / 3470 4550 / 4550 4000 / 4000 Balance -2269 / -2269 -2990 / -2990 -2140 / -2140 - Physical Exam Oriented: Normal, Time, Person, Place Eyes: Normal Ear: Normal Nose: Normal Throat: Normal Respiratory: Normal Cardiovascular: Normal : Normal Auscultation: Bowel Sounds: Normal Palpation: Normal Tenderness: Normal Skin: Normal Musculoskeletal: Arm (left arm tenderness) Psychiatric: Normal Mood Description: Calm, Appropriate Affect: Normal Speech Pattern: Clear, Appropriate - Laboratory and Diagnostics Result Diagrams: 01/28/23 04:30 01/28/23 04:30 Labs: 01/22/23 14:27 Arm - Left Wound Gram Stain - Final 01/22/23 14:27 Arm - Left Wound Culture - Final Staphylococcus Aureus Laboratory WBC 5.0 X10^3/uL (3.6-10.0) 01/28/23 04:30 RBC 4.37 X10^6/uL (4.7-6.0) L 01/28/23 04:30 Hgb 12.0 g/dL (13.5-18.0) L 01/28/23 04:30 Hct 35.5 % (42.0-54.0) L 01/28/23 04:30 MCV 81.2 fL (80.0-100.0) 01/28/23 04:30 MCH 27.4 pg (27.0-34.0) 01/28/23 04:30 MCHC 33.7 g/dL (33.0-35.0) 01/28/23 04:30 RDW 14.7 % (11.6-16.5) 01/28/23 04:30 Plt Count 234 X10^3/uL (150.0-450.0) 01/28/23 04:30 MPV 7.3 fL (7.4-11.0) L 01/28/23 04:30 Neut % (Auto) 71.0 % (42.0-75.0) 01/28/23 04:30 Lymph % (Auto) 13.3 % (21.0-51.0) L 01/28/23 04:30 [place] % (Auto) 9.3 % (0.0-13.0) 01/28/23 04:30 Eos % (Auto) 5.2 % (0.9-2.9) H 01/28/23 04:30 Baso % (Auto) 1.2 % (0.2-1.0) H 01/28/23 04:30 Neut # (Auto) 3.6 x10^3/uL (2.2-4.8) 01/28/23 04:30 Lymph # (Auto) 0.7 X10^3/uL (1.3-2.9) L 01/28/23 04:30 [place] # (Auto) 0.5 x10^3/uL (0.3-0.8) 01/28/23 04:30 Eos # (Auto) 0.3 x10^3/uL (0.0-0.2) H 01/28/23 04:30 Baso # (Auto) 0.1 X10^3/uL (0.0-0.1) 01/28/23 04:30 Absolute Nucleated RBC 0.1 /100WBC 01/28/23 04:30 Sample Site Rr 01/25/23 11:28 ABG pH 7.370 (7.35-7.45) 01/25/23 11:28 ABG pCO2 30.0 mmHg (35.0-45.0) L 01/25/23 11:28 ABG pO2 82.0 mmHg (80.0-100.0) 01/25/23 11:28 ABG HCO3 17.3 mmol/L (22-26) L* 01/25/23 11:28 ABG O2 Saturation 96.0 % (90-100) 01/25/23 11:28 ABG Base Excess -6.8 mmol/L (-2.0-2.0) L 01/25/23 11:28 Gordo Test Pos 01/25/23 11:28 A-a Gradient 30.0 mmHg 01/25/23 11:28 FiO2 21.0 01/25/23 11:28 Blood Gas Comments Pt [email or web address] 01/25/23 11:28 Sodium 139 mmol/L (136-145) 01/28/23 04:30 Corrected Sodium 143 mmol/L (136-145) 01/28/23 04:30 Potassium 4.2 mmol/L (3.5-5.1) 01/28/23 04:30 Chloride 103 mmol/L (98-107) 01/28/23 04:30 Carbon Dioxide 24.8 mmol/L (21-32) 01/28/23 04:30 BUN 43 mg/dL (7-18) H 01/28/23 04:30 Creatinine 2.41 mg/dL (0.70-1.30) H 01/28/23 04:30 Est GFR (MDRD) Af Amer 37 (>60) L 01/28/23 04:30 Est GFR (MDRD) Non-Af 30 (>60) L 01/28/23 04:30 Glucose 246 mg/dL (65-99) H 01/28/23 04:30 POC Glucose (mg/dL) 224 mg/dL (65-99) H 01/28/23 11:48 Calcium 8.6 mg/dL (8.5-10.1) 01/28/23 04:30 Corrected Calcium 10.1 mg/dL (8.5-10.1) 01/28/23 04:30 Phosphorus 8.0 mg/dL (2.6-4.7) H 01/25/23 04:24 Magnesium 2.2 mg/dL (2.0-2.9) 01/25/23 04:24 Total Bilirubin 0.40 mg/dL (0.2-1.0) 01/28/23 04:30 AST 27 Units/L (15-37) 01/28/23 04:30 ALT 11 Units/L (12-78) L 01/28/23 04:30 Alkaline Phosphatase 310 Units/L (46-116) H 01/28/23 04:30 Creatine Kinase 155 Units/L (39-308) 01/24/23 14:00 B-Natriuretic Peptide 3170 pg/mL (0-79) H* 01/28/23 04:30 Total Protein 6.5 g/dL (6.4-8.2) 01/28/23 04:30 Albumin 2.1 g/dL (3.4-5.0) L 01/28/23 04:30 Globulin 4.4 g/dL (2.5-4.5) 01/28/23 04:30 Albumin/Globulin Ratio 0.5 Ratio (1.1-2.1) L 01/28/23 04:30 Specimen Type Clean catch urine 01/24/23 09:47 Urine Color Dark yellow (YELLOW) 01/24/23 09:47 Urine Appearance Cloudy (CLEAR) 01/24/23 09:47 Urine pH 5.0 (5.0 - 8.0) 01/24/23 09:47 Ur Specific [place] 1.025 (1.000-1.030) 01/24/23 09:47 Urine Protein 2+ (NEGATIVE) 01/24/23 09:47 Urine Glucose (UA) 3+ (NEGATIVE) 01/24/23 09:47 Urine Ketones Negative (NEGATIVE) 01/24/23 09:47 Urine Blood 3+ (NEGATIVE) 01/24/23 09:47 Urine Nitrite Negative (NEGATIVE) 01/24/23 09:47 Urine Bilirubin Negative (NEGATIVE) 01/24/23 09:47 Urine Urobilinogen Normal (NORMAL) 01/24/23 09:47 Ur Leukocyte Esterase Negative (NEGATIVE) 01/24/23 09:47 Urine RBC 3-5 /HPF (0-3) A 01/24/23 09:47 Urine WBC None seen /HPF (0-5) 01/24/23 09:47 Ur Squamous Epith Cells Rare /HPF (NEGATIVE) 01/24/23 09:47 Amorphous Sediment 4+ /HPF (NEGATIVE) 01/24/23 09:47 Urine Bacteria Trace /HPF (NEGATIVE) 01/24/23 09:47 Granular Casts Few /LPF (NEGATIVE) 01/24/23 09:47 Ur Culture Indicated? No/not indicated 01/24/23 09:47 Ur Random Sodium 31 mmol/L (40-220) L 01/24/23 09:47 Urine Creatinine 122.74 mg/dL (40-278) 01/24/23 09:47 - Plan (1) ATN (acute tubular necrosis) Status: Acute (2) Acute kidney injury Status: Acute (3) Abscess of muscle of upper arm Status: Acute Plan: post I&D. IV antibiotics. Wound culture pending (4) Hematoma of muscle Status: Acute Plan: Will plan drainage of this hematoma to the left posterior upper arm (5) Pulmonary vascular congestion Status: Acute (6) Congestive heart failure Status: Chronic Qualifiers: Heart failure type: unspecified Heart failure chronicity: chronic Qualified Code(s): I50.9 - Heart failure, unspecified Plan: continue current treatment (7) Coronary artery disease Status: Chronic Qualifiers: Coronary Disease-Associated Artery/Lesion type: [place] artery [place] vs. 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
--- NOTE | 2023-01-28 15:06 | NOTE.SOAP ---
Soap Note Note for Day of Date of Exam: 01/28/23 Subjective Data Subjective Data: Continues to improve after pus drained left arm. Creatinine continues to improve. Objective Data Temperature: 97.8 F Pulse Rate: 80 Respiratory Rate: 20 Blood Pressure: 124/70 O2 Sat by Pulse Oximetry: 95 Objective Data: Wound repacked . Continues to get smaller. Cr=2.41 Assessment Assessment: S/P i and D left arm abscess. Improving. Creatinine improving . Plan Plan: Discharge soon with home health to pack wound daily.
[2023-01-28] MEDS: SNACK - Diabetic Appropriate PO SCH (19:37)
[2023-01-29 05:11] LABS: BASOPHILS # (AUTO) 0.1 X10^3/uL (0.0-0.1); EOSINOPHILS # (AUTO) 0.3 x10^3/uL (0.0-0.2); HEMATOCRIT 34.2 % (42.0-54.0); HEMOGLOBIN 11.5 g/dL (13.5-18.0); LYMPHOCYTES # (AUTO) 0.8 X10^3/uL (1.3-2.9); LYMPHOCYTES % (AUTO) 12.8 % (21.0-51.0); MEAN CORPUSCULAR HEMOGLOBIN 27.1 pg (27.0-34.0); MEAN CORPUSCULAR HGB CONC 33.6 g/dL (33.0-35.0); MEAN CORPUSCULAR VOLUME 80.7 fL (80.0-100.0); MEAN PLATELET VOLUME 7.1 fL (7.4-11.0); MONOCYTES # (AUTO) 0.5 x10^3/uL (0.3-0.8); MONOCYTES % (AUTO) 8.4 % (0.0-13.0); NEUTROPHILS # (AUTO) 4.5 x10^3/uL (2.2-4.8); NEUTROPHILS % (AUTO) 72.8 % (42.0-75.0); RED BLOOD COUNT 4.24 X10^6/uL (4.7-6.0); RED CELL DISTRIBUTION WIDTH 14.8 % (11.6-16.5); WHITE BLOOD COUNT 6.2 X10^3/uL (3.6-10.0)
[2023-01-29 05:25] LABS: ALBUMIN 2.3 g/dL (3.4-5.0); CALCIUM 8.7 mg/dL (8.5-10.1); CARBON DIOXIDE 24.6 mmol/L (21-32); COR CA(FOR HYPOALB) 10.1 mg/dL (8.5-10.1); CREATININE 1.93 mg/dL (0.70-1.30); TOTAL PROTEIN 6.5 g/dL (6.4-8.2)
--- NOTE | 2023-01-29 08:18 | PCM.PROG ---
Progress Note Progress Note for Day of Date of Exam: 01/25/23 Subjective Subjective: Pt is a 52 year old male past medical history of CAD, HTN, DMT2, admitted for abscess of the left arm and acute tubular necrosis. He is s/p I&D which revealed large abscess with pus. Wound Cx showed staph aureus. He is receiving IV Rocephin. His renal function had been worsening. [facility] consulted and increase in IV lasix, fluid restriction, strict I/O. Pt has had some improvement today in renal function. Labs/imaging reviewed - Cr 5.95 Plan: Continue IV lasix 80mg daily. Discontinue IVF. Strict I/Os. Fluid restriction 1L. Monitor UOP closely. Discussed with patient. Monitor AM labs. Past Medical Family Social History Allergies: Allergies sulfamethoxazole [From Bactrim] Allergy (Verified 01/20/23 09:06) trimethoprim [From Bactrim] Allergy (Verified 01/20/23 09:06) watermelon Allergy (Verified 01/20/23 14:49) Review of Systems ROS: No change since H&P Vital Signs and I&O's Vital Signs: Temperature 97.8 F Pulse Rate [Left] 74 Pulse Rate 77 Respiratory Rate 18 Blood Pressure [Right Arm] 151/76 Blood Pressure [Left Arm] 118/65 Blood Pressure 116/77 O2 Sat by Pulse Oximetry 98 Intake and Output: Intake & Output 01/23/23 01/24/23 01/25/23 01/26/23 23:59 23:59 23:59 23:59 Intake Total 2308 / 2308 5379 / 5379 1810 / 1810 240 / 240 Output Total 250 / 250 3345 / 3345 600 / 600 Balance 2308 / 2308 5129 / 5129 -1535 / -1535 -360 / -360 Physical Exam Oriented: Normal, Time, Person and Place Eyes: Normal Ear: Normal Nose: Normal Throat: Normal Respiratory: Normal Cardiovascular: Normal : Normal Auscultation: Bowel Sounds: Normal Tenderness: Normal Skin: Normal Musculoskeletal: Arm (left arm tenderness ) Psychiatric: Normal Mood Description: Calm and Appropriate Affect: Normal Speech Pattern: Clear and Appropriate Laboratory and Diagnostics Result Diagrams: 01/29/23 04:49 01/29/23 04:49 Labs: 01/22/23 14:27 Arm - Left Wound Gram Stain - Final 01/22/23 14:27 Arm - Left Wound Culture - Final Staphylococcus Aureus Laboratory WBC 4.2 X10^3/uL (3.6-10.0) 01/26/23 05:17 RBC 4.15 X10^6/uL (4.7-6.0) L 01/26/23 05:17 Hgb 11.2 g/dL (13.5-18.0) L 01/26/23 05:17 Hct 33.4 % (42.0-54.0) L 01/26/23 05:17 MCV 80.4 fL (80.0-100.0) 01/26/23 05:17 MCH 27.1 pg (27.0-34.0) 01/26/23 05:17 MCHC 33.7 g/dL (33.0-35.0) 01/26/23 05:17 RDW 14.5 % (11.6-16.5) 01/26/23 05:17 Plt Count 234 X10^3/uL (150.0-450.0) 01/26/23 05:17 MPV 7.3 fL (7.4-11.0) L 01/26/23 05:17 Neut % (Auto) 70.3 % (42.0-75.0) 01/26/23 05:17 Lymph % (Auto) 11.6 % (21.0-51.0) L 01/26/23 05:17 [place] % (Auto) 10.3 % (0.0-13.0) 01/26/23 05:17 Eos % (Auto) 6.4 % (0.9-2.9) H 01/26/23 05:17 Baso % (Auto) 1.4 % (0.2-1.0) H 01/26/23 05:17 Neut # (Auto) 3.0 x10^3/uL (2.2-4.8) 01/26/23 05:17 Lymph # (Auto) 0.5 X10^3/uL (1.3-2.9) L 01/26/23 05:17 [place] # (Auto) 0.4 x10^3/uL (0.3-0.8) 01/26/23 05:17 Eos # (Auto) 0.3 x10^3/uL (0.0-0.2) H 01/26/23 05:17 Baso # (Auto) 0.1 X10^3/uL (0.0-0.1) 01/26/23 05:17 Absolute Nucleated RBC 0.0 /100WBC 01/26/23 05:17 Sample Site Rr 01/25/23 11:28 ABG pH 7.370 (7.35-7.45) 01/25/23 11:28 ABG pCO2 30.0 mmHg (35.0-45.0) L 01/25/23 11:28 ABG pO2 82.0 mmHg (80.0-100.0) 01/25/23 11:28 ABG HCO3 17.3 mmol/L (22-26) L* 01/25/23 11:28 ABG O2 Saturation 96.0 % (90-100) 01/25/23 11:28 ABG Base Excess -6.8 mmol/L (-2.0-2.0) L 01/25/23 11:28 Gordo Test Pos 01/25/23 11:28 A-a Gradient 30.0 mmHg 01/25/23 11:28 FiO2 21.0 01/25/23 11:28 Blood Gas Comments Pt [email or web address] 01/25/23 11:28 Sodium 136 mmol/L (136-145) 01/26/23 05:17 Corrected Sodium 138 mmol/L (136-145) 01/26/23 05:17 Potassium 4.4 mmol/L (3.5-5.1) 01/26/23 05:17 Chloride 101 mmol/L (98-107) 01/26/23 05:17 Carbon Dioxide 23.6 mmol/L (21-32) 01/26/23 05:17 BUN 56 mg/dL (7-18) H 01/26/23 05:17 Creatinine 4.49 mg/dL (0.70-1.30) H 01/26/23 05:17 Est GFR (MDRD) Af Amer 18 (>60) L 01/26/23 05:17 Est GFR (MDRD) Non-Af 15 (>60) L 01/26/23 05:17 Glucose 172 mg/dL (65-99) H 01/26/23 05:17 POC Glucose (mg/dL) 170 mg/dL (65-99) H 01/26/23 05:31 Calcium 8.4 mg/dL (8.5-10.1) L 01/26/23 05:17 Corrected Calcium 10.2 mg/dL (8.5-10.1) H 01/26/23 05:17 Phosphorus 8.0 mg/dL (2.6-4.7) H 01/25/23 04:24 Magnesium 2.2 mg/dL (2.0-2.9) 01/25/23 04:24 Total Bilirubin 0.40 mg/dL (0.2-1.0) 01/26/23 05:17 AST 27 Units/L (15-37) 01/26/23 05:17 ALT 7 Units/L (12-78) L 01/26/23 05:17 Alkaline Phosphatase 266 Units/L (46-116) H 01/26/23 05:17 Creatine Kinase 155 Units/L (39-308) 01/24/23 14:00 B-Natriuretic Peptide 2480 pg/mL (0-79) H* 01/25/23 04:24 Total Protein 6.1 g/dL (6.4-8.2) L 01/26/23 05:17 Albumin 1.7 g/dL (3.4-5.0) L 01/26/23 05:17 Globulin 4.4 g/dL (2.5-4.5) 01/26/23 05:17 Albumin/Globulin Ratio 0.4 Ratio (1.1-2.1) L 01/26/23 05:17 Specimen Type Clean catch urine 01/24/23 09:47 Urine Color Dark yellow (YELLOW) 01/24/23 09:47 Urine Appearance Cloudy (CLEAR) 01/24/23 09:47 Urine pH 5.0 (5.0 - 8.0) 01/24/23 09:47 Ur Specific Vance 1.025 (1.000-1.030) 01/24/23 09:47 Urine Protein 2+ (NEGATIVE) 01/24/23 09:47 Urine Glucose (UA) 3+ (NEGATIVE) 01/24/23 09:47 Urine Ketones Negative (NEGATIVE) 01/24/23 09:47 Urine Blood 3+ (NEGATIVE) 01/24/23 09:47 Urine Nitrite Negative (NEGATIVE) 01/24/23 09:47 Urine Bilirubin Negative (NEGATIVE) 01/24/23 09:47 Urine Urobilinogen Normal (NORMAL) 01/24/23 09:47 Ur Leukocyte Esterase Negative (NEGATIVE) 01/24/23 09:47 Urine RBC 3-5 /HPF (0-3) A 01/24/23 09:47 Urine WBC None seen /HPF (0-5) 01/24/23 09:47 Ur Squamous Epith Cells Rare /HPF (NEGATIVE) 01/24/23 09:47 Amorphous Sediment 4+ /HPF (NEGATIVE) 01/24/23 09:47 Urine Bacteria Trace /HPF (NEGATIVE) 01/24/23 09:47 Granular Casts Few /LPF (NEGATIVE) 01/24/23 09:47 Ur Culture Indicated? No/not indicated 01/24/23 09:47 Ur Random Sodium 31 mmol/L (40-220) L 01/24/23 09:47 Urine Creatinine 122.74 mg/dL (40-278) 01/24/23 09:47 Plan (1) ATN (acute tubular necrosis): Status: Acute (2) Acute kidney injury: Status: Acute (3) Abscess of muscle of upper arm: Status: Acute Plan: post I&D IV antibiotics Wound culture pending (4) Hematoma of muscle: Status: Acute Plan: Will plan drainage of this hematoma to the left posterior upper arm (5) Coronary artery disease: Status: Chronic Plan: current treatment (6) Congestive heart failure: Status: Chronic Plan: continue current treatment (7) Diabetes: Status: Chronic Plan: Current home treatment
--- NOTE | 2023-01-29 08:21 | PCM.PROG ---
Progress Note Progress Note for Day of Date of Exam: 01/26/23 Subjective Subjective: Pt is a 52 year old male past medical history of CAD, HTN, DMT2, admitted for abscess of the left arm and acute tubular necrosis. He is s/p I&D which revealed large abscess with pus. Wound Cx showed staph aureus. He is receiving IV Rocephin. His renal function today continues to improve with diuresis. [facility] consulted and following, recommend checking magnesium and phosphorous levels. Otherwise continue with current treatment plan. Labs/imaging reviewed - Cr 4.49 Plan: Continue IV lasix 80mg daily. Discontinue IVF. Strict I/Os. Fluid restriction 1L. Monitor UOP closely. Discussed with patient. Monitor AM labs. Past Medical Family Social History Past Med/Fam/Surg Hx: No changes since H&P Allergies: Allergies sulfamethoxazole [From Bactrim] Allergy (Verified 01/20/23 09:06) trimethoprim [From Bactrim] Allergy (Verified 01/20/23 09:06) watermelon Allergy (Verified 01/20/23 14:49) Review of Systems ROS: No change since H&P Vital Signs and I&O's Vital Signs: Temperature 98 F Pulse Rate [Left] 74 Pulse Rate 80 Respiratory Rate 18 Blood Pressure [Right Arm] 115/79 Blood Pressure [Left Arm] 118/65 Blood Pressure 124/70 O2 Sat by Pulse Oximetry 97 Intake and Output: Intake & Output 01/26/23 01/27/23 01/28/23 01/29/23 23:59 23:59 23:59 23:59 Intake Total 1780 / 1780 1270 / 1270 1550 / 1550 220 / 220 Output Total 4450 / 4450 3750 / 3750 1500 / 1500 Balance -2670 / -2670 -2480 / -2480 50 / 50 220 / 220 Physical Exam Oriented: Normal, Time, Person and Place Eyes: Normal Ear: Normal Nose: Normal Throat: Normal Respiratory: Normal Cardiovascular: Normal : Normal Auscultation: Bowel Sounds: Normal Tenderness: Normal Skin: Normal Musculoskeletal: Arm (left arm tenderness ) Psychiatric: Normal Mood Description: Calm and Appropriate Affect: Normal Speech Pattern: Clear and Appropriate Laboratory and Diagnostics Result Diagrams: 01/29/23 04:49 01/29/23 04:49 Labs: 01/22/23 14:27 Arm - Left Wound Gram Stain - Final 01/22/23 14:27 Arm - Left Wound Culture - Final Staphylococcus Aureus Laboratory WBC 6.2 X10^3/uL (3.6-10.0) 01/29/23 04:49 RBC 4.24 X10^6/uL (4.7-6.0) L 01/29/23 04:49 Hgb 11.5 g/dL (13.5-18.0) L 01/29/23 04:49 Hct 34.2 % (42.0-54.0) L 01/29/23 04:49 MCV 80.7 fL (80.0-100.0) 01/29/23 04:49 MCH 27.1 pg (27.0-34.0) 01/29/23 04:49 MCHC 33.6 g/dL (33.0-35.0) 01/29/23 04:49 RDW 14.8 % (11.6-16.5) 01/29/23 04:49 Plt Count 251 X10^3/uL (150.0-450.0) 01/29/23 04:49 MPV 7.1 fL (7.4-11.0) L 01/29/23 04:49 Neut % (Auto) 72.8 % (42.0-75.0) 01/29/23 04:49 Lymph % (Auto) 12.8 % (21.0-51.0) L 01/29/23 04:49 [place] % (Auto) 8.4 % (0.0-13.0) 01/29/23 04:49 Eos % (Auto) 5.0 % (0.9-2.9) H 01/29/23 04:49 Baso % (Auto) 1.0 % (0.2-1.0) 01/29/23 04:49 Neut # (Auto) 4.5 x10^3/uL (2.2-4.8) 01/29/23 04:49 Lymph # (Auto) 0.8 X10^3/uL (1.3-2.9) L 01/29/23 04:49 [place] # (Auto) 0.5 x10^3/uL (0.3-0.8) 01/29/23 04:49 Eos # (Auto) 0.3 x10^3/uL (0.0-0.2) H 01/29/23 04:49 Baso # (Auto) 0.1 X10^3/uL (0.0-0.1) 01/29/23 04:49 Absolute Nucleated RBC 0.1 /100WBC 01/29/23 04:49 Sample Site Rr 01/25/23 11:28 ABG pH 7.370 (7.35-7.45) 01/25/23 11:28 ABG pCO2 30.0 mmHg (35.0-45.0) L 01/25/23 11:28 ABG pO2 82.0 mmHg (80.0-100.0) 01/25/23 11:28 ABG HCO3 17.3 mmol/L (22-26) L* 01/25/23 11:28 ABG O2 Saturation 96.0 % (90-100) 01/25/23 11:28 ABG Base Excess -6.8 mmol/L (-2.0-2.0) L 01/25/23 11:28 [place] Test Pos 01/25/23 11:28 A-a Gradient 30.0 mmHg 01/25/23 11:28 FiO2 21.0 01/25/23 11:28 Blood Gas Comments Pt [email or web address] 01/25/23 11:28 Sodium 140 mmol/L (136-145) 01/29/23 04:49 Corrected Sodium 140 mmol/L (136-145) 01/29/23 04:49 Potassium 4.1 mmol/L (3.5-5.1) 01/29/23 04:49 Chloride 106 mmol/L (98-107) 01/29/23 04:49 Carbon Dioxide 24.6 mmol/L (21-32) 01/29/23 04:49 BUN 40 mg/dL (7-18) H 01/29/23 04:49 Creatinine 1.93 mg/dL (0.70-1.30) H 01/29/23 04:49 Est GFR (MDRD) Af Amer 48 (>60) L 01/29/23 04:49 Est GFR (MDRD) Non-Af 39 (>60) L 01/29/23 04:49 Glucose 113 mg/dL (65-99) H 01/29/23 04:49 POC Glucose (mg/dL) 109 mg/dL (65-99) H 01/29/23 05:09 Calcium 8.7 mg/dL (8.5-10.1) 01/29/23 04:49 Corrected Calcium 10.1 mg/dL (8.5-10.1) 01/29/23 04:49 Phosphorus 8.0 mg/dL (2.6-4.7) H 01/25/23 04:24 Magnesium 2.2 mg/dL (2.0-2.9) 01/25/23 04:24 Total Bilirubin 0.40 mg/dL (0.2-1.0) 01/29/23 04:49 AST 23 Units/L (15-37) 01/29/23 04:49 ALT 10 Units/L (12-78) L 01/29/23 04:49 Alkaline Phosphatase 281 Units/L (46-116) H 01/29/23 04:49 Creatine Kinase 155 Units/L (39-308) 01/24/23 14:00 B-Natriuretic Peptide 3610 pg/mL (0-79) H* 01/29/23 04:49 Total Protein 6.5 g/dL (6.4-8.2) 01/29/23 04:49 Albumin 2.3 g/dL (3.4-5.0) L 01/29/23 04:49 Globulin 4.2 g/dL (2.5-4.5) 01/29/23 04:49 Albumin/Globulin Ratio 0.5 Ratio (1.1-2.1) L 01/29/23 04:49 Specimen Type Clean catch urine 01/24/23 09:47 Urine Color Dark yellow (YELLOW) 01/24/23 09:47 Urine Appearance Cloudy (CLEAR) 01/24/23 09:47 Urine pH 5.0 (5.0 - 8.0) 01/24/23 09:47 Ur Specific [place] 1.025 (1.000-1.030) 01/24/23 09:47 Urine Protein 2+ (NEGATIVE) 01/24/23 09:47 Urine Glucose (UA) 3+ (NEGATIVE) 01/24/23 09:47 Urine Ketones Negative (NEGATIVE) 01/24/23 09:47 Urine Blood 3+ (NEGATIVE) 01/24/23 09:47 Urine Nitrite Negative (NEGATIVE) 01/24/23 09:47 Urine Bilirubin Negative (NEGATIVE) 01/24/23 09:47 Urine Urobilinogen Normal (NORMAL) 01/24/23 09:47 Ur Leukocyte Esterase Negative (NEGATIVE) 01/24/23 09:47 Urine RBC 3-5 /HPF (0-3) A 01/24/23 09:47 Urine WBC None seen /HPF (0-5) 01/24/23 09:47 Ur Squamous Epith Cells Rare /HPF (NEGATIVE) 01/24/23 09:47 Amorphous Sediment 4+ /HPF (NEGATIVE) 01/24/23 09:47 Urine Bacteria Trace /HPF (NEGATIVE) 01/24/23 09:47 Granular Casts Few /LPF (NEGATIVE) 01/24/23 09:47 Ur Culture Indicated? No/not indicated 01/24/23 09:47 Ur Random Sodium 31 mmol/L (40-220) L 01/24/23 09:47 Urine Creatinine 122.74 mg/dL (40-278) 01/24/23 09:47 Plan (1) ATN (acute tubular necrosis): Status: Acute (2) Acute kidney injury: Status: Acute (3) Abscess of muscle of upper arm: Status: Acute Plan: post I&D IV antibiotics Wound culture pending (4) Hematoma of muscle: Status: Acute Plan: Will plan drainage of this hematoma to the left posterior upper arm (5) Coronary artery disease: Status: Chronic Qualifiers: Coronary Disease-Associated Artery/Lesion type: [place] artery [place] vs. transplanted heart: [place] heart Plan: current treatment (6) Congestive heart failure: Status: Chronic Qualifiers: Heart failure type: unspecified Heart failure chronicity: chronic Qualified Code(s): I50.9 - Heart failure, unspecified Plan: continue current treatment (7) Diabetes: Status: Chronic Qualifiers: Diabetes mellitus type: type 2 Diabetes mellitus shelter insulin use: unspecified intermediate teacher insulin use status Diabetes mellitus complication status: with other specified complication Qualified Code(s): E11.69 - Type 2 diabetes mellitus with other specified complication Plan: Current home treatment
--- NOTE | 2023-01-29 08:44 | RAD ---
HISTORYSOBSTUDYAP chestCOMPARISONApril 2022FINDINGSNo change in cardiac size or pacemaker position. Mild diffuse interstitial prominence is again noted, nonspecific. There is no evidence for developing airspace component or pleural fluid.IMPRESSIONNo change.Electronically signed by: CYNTHIA GODOY (Jan 29, 2023 08:44:25)
[2023-01-29] MEDS: LIPITOR TAB 40 MG PO SCH (08:50)
[2023-01-29] MEDS: COREG TAB 3.125 MG PO SCH (08:50)
[2023-01-29] MEDS: HEPARIN SODIUM INJ 5000 UNITS SC SCH (08:51)
[2023-01-29] MEDS: ROCEPHIN VIAL 1 GRAM 1 G in NS 100 ML IV 100 ML IV SCH (08:51)
[2023-01-29] MEDS: ALBUMIN HUMAN 25%- 100 ML 100 ML IV SCH (08:51)
[2023-01-29] MEDS: LASIX IVP SCH (08:51)
[2023-01-29 09:06] VITALS: BP 125/75
== END 2023-01-29 11:45 | disposition home health service (06) | DRG 557 ==
LOC: MED/SURG 08:37 → ER 08:37 → MED/SURG 14:15
PROVIDERS: ADMIT Family Medicine; ATTEND Family Medicine
DX: E11.65 Type 2 diabetes mellitus with hyperglycemia; Z95.0 Presence of cardiac pacemaker; M79.622 Pain in left upper arm; N17.0 Acute kidney failure with tubular necrosis; M60.022 Infective myositis, left upper arm; S40.022A Contusion of left upper arm, initial encounter; I11.0 Hypertensive heart disease with heart failure; I25.10 Atherosclerotic heart disease of native coronary artery without angina pectoris; X58.XXXA Exposure to other specified factors, initial encounter; B95.61 Methicillin susceptible Staphylococcus aureus infection as the cause of diseases classified elsewhere; I50.9 Heart failure, unspecified